=== PATIENT | female | born 1955 | race Caucasian/White ===

== ENCOUNTER 2023-10-31 08:19 | Inpatient (IN) | payer OTHER, SELFPAY ==
[2023-10-31] VITALS (16 sets, daily range): BP systolic 115–150; BP diastolic 52–78; PULSE 69–95; RESP 14–28; TEMP 36.4–37.2; O2SAT 92–98; BMI 23.4
--- NOTE | ~2023-10-31 | FL_ITS ---
EXAMINATION: XR FLUOROSCOPY WITH IMAGES CLINICAL INFORMATION: Retrograde pyelogram COMPARISON: CT abdomen and pelvis from 03/31/2024 TECHNIQUE: Fluoroscopy Supervised By: Oswaldo Willingham. Fluoroscopy Time: 14.9. Cumulative Dose: 4.24 mGy. Images: 3. FINDINGS: 3 images obtained by C-arm camera during retrograde pyelogram on the right and small amount of contrast injected in not dilated collecting system Leonie are not seen. FL/FL guidance in OR IMPRESSION: Retrograde pyelogram
--- NOTE | ~2023-10-31 | CT_ITS ---
EXAMINATION: CT ABDOMEN AND PELVIS WITH CONTRAST CLINICAL INFORMATION: Abdominal pain COMPARISON: None available. TECHNIQUE: Multidetector volumetric images were obtained from the superior aspect of the liver through the pubic symphysis following administration 85 mL of Omnipaque 350 intravenous contrast. Sagittal and coronal reformatted images were obtained on the technologist's workstation. Oral contrast: No This CT examination was performed using dose optimization techniques as appropriate, variously including the following: *Automated exposure control *Adjustment of mA and/or kV according to patient size (this includes techniques or standardized protocols for targeted exams where dose is matched to indication/reason for exam; i.e. extremities or head) *Use of iterative reconstruction technique DLP: 300 mGy-cm FINDINGS: LUNG BASES: The visualized lung bases are unremarkable. LIVER, GALLBLADDER, AND BILIARY TREE: The liver is normal in size, shape, and attenuation. There is a tiny 3 mm cyst in the right lobe of the liver (3:20). No worrisome solid focal hepatic lesion or biliary ductal dilatation is present. The gallbladder is unremarkable with no evidence of radiopaque gallstones, gallbladder wall thickening, or obvious pericholecystic inflammatory changes. PANCREAS: Unremarkable. SPLEEN: Unremarkable. ADRENAL GLANDS: Unremarkable. KIDNEYS AND URETERS: Right: There is an obstructing proximal ureteral calculus on the right measuring about 2 mm in size associated with pelvocaliectasis and perinephric stranding consistent with forniceal rupture. Small amount of fluid is present in the pararenal space. There are benign Bosniak class I right renal cysts which need no additional imaging or follow-up. No suspicious solid right renal masses are seen. No intrarenal calculi are noted. The ureter distal to this stone is unremarkable. Left: Aside from the presence of an upper pole benign Bosniak class I renal cyst which needs no additional imaging or follow-up, no abnormality is seen. BLADDER: Nearly empty but unremarkable. GASTROINTESTINAL TRACT: The small and large bowel are unremarkable. The appendix is unremarkable. ABDOMINAL WALL: No significant hernia is appreciated. LYMPH NODES: Normal. VASCULAR: Calcific atherosclerotic changes are present in the aorta and iliofemoral vessels. There is no evidence of an abdominal aortic aneurysm. PELVIC VISCERA: Unremarkable. OSSEOUS STRUCTURES: Degenerative changes are present at L2-L3 with disc space narrowing. There is a compression fracture involving the superior endplate of L1. CT/CT abdomen pelvis w IV con IMPRESSION: 1. Obstructing 2 mm proximal right ureteral calculus with associated pelvocaliectasis and perinephric stranding consistent with forniceal rupture. 2. Incidental note made of benign Bosniak class I renal cysts which need no additional imaging or follow-up, L1 compression fracture and degenerative changes L2-L3. Fleischner guidelines were followed.
--- NOTE | ~2023-10-31 | XR_ITS ---
EXAMINATION: XR CHEST CLINICAL INFORMATION: Hypoxemia COMPARISON: Portable chest 10/31/2023 TECHNIQUE: AP upright portable view of the chest was obtained. 4:39 PM FINDINGS: No significant abnormality is noted involving the heart, lungs, mediastinum, bony thorax or soft tissues. There is mild bibasilar atelectasis, as previously noted. XR/XR chest 1V IMPRESSION: No acute cardiopulmonary disease.
--- NOTE | ~2023-10-31 | XR_ITS ---
EXAMINATION: XR CHEST CLINICAL INFORMATION: Shortness of breath COMPARISON: None available. TECHNIQUE: Frontal view of the chest was obtained. FINDINGS: No significant abnormality is noted involving the heart, lungs, mediastinum, bony thorax or soft tissues. There is mild bibasilar atelectasis is present. XR/XR chest 1V IMPRESSION: No acute intrathoracic disease.
--- NOTE | 2023-10-31 08:33 | ED.GENADULT ---
HPI - General Adult General Chief complaint: Urogenital-Female Stated complaint: R Side Back Pain No Injury Time Seen by Provider: 10/31/23 08:33 Source: patient Mode of arrival: ambulatory Limitations: no limitations History of Present Illness HPI narrative: Patient is a 68 year old assigned female at with a history of tobacco use presenting to the emergency department today with right flank pain. Patient states that 3 days ago she began to have right sided flank pain and has not been able to urinate since that morning. Patient denies any dizziness, lightheadedness, nausea, vomiting, fever, chills, blurry vision, double vision, loss of vision, chest pain, difficulty breathing, shortness of breath, back pain, night sweats, pain with urination, increased urinary frequency, increased urinary urgency, blood in her urine or stool, syncope or a near syncopal episode, recent trauma or falls, bowel incontinence, bladder incontinence, bowel retention, or any other complaints at this time. Onset (ago): day(s) (3) Location: right (flank) Severity: moderate Severity scale (1-10): 5 Relieving factors: none Exacerbating factors: none Associated symptoms: denies other symptoms Treatments prior to arrival: none Related Data Home Medications Medication Instructions Recorded Confirmed amlodipine 10 mg tablet 10 mg PO DAILY 10/31/23 10/31/23 aspirin 81 mg tablet,delayed 81 mg PO DAILY 10/31/23 10/31/23 release atorvastatin 40 mg tablet 40 mg PO DAILY 10/31/23 10/31/23 cholecalciferol (vitamin D3) 125 125 mcg PO DAILY 10/31/23 10/31/23 mcg (5,000 unit) tablet (Vitamin D3) lisinopril 2.5 mg tablet 2.5 mg PO DAILY 10/31/23 10/31/23 Allergies Allergy/AdvReac Type Severity Reaction Status Date / Time No Known Allergies Allergy Verified 10/31/23 08:30 [No Known Allergies*] Review of Systems Constitutional: Constitutional: Reports no additional constitutional complaints, Denies chills, Denies fever(s) and Denies night sweats Eyes: Eyes: Reports no additional eye complaints, Denies blurry vision, Denies change in vision, Denies diplopia, Denies eye discharge, Denies loss of vision and Denies eye pain ENT: Denies dizziness Cardiovascular: Cardiovascular: Reports no additional cardiovascular complaints, Denies chest pain, Denies lightheadedness, Denies Loss of Consciousness and Denies dyspnea Respiratory: Respiratory: Reports no additional respiratory complaints and Denies dyspnea Gastrointestinal: Gastrointestinal: Reports no additional gastrointestinal complaints, Denies abdominal pain, Denies melena, Denies hematochezia, Denies change in bowel habits and Denies change in stool character Genitourinary: Genitourinary: Denies hematuria, Denies urinary frequency, Denies dysuria, Denies urinary incontinence, Denies urinary hesitancy and Denies urinary urgency Comments: right flank pain Musculoskeletal: Musculoskeletal: Reports no additional musculoskeletal complaints, Denies numbness and Denies tingling Neurologic: Denies dizziness, Denies loss of vision, Denies numbness and Denies tingling Psychiatric: Psychiatric: Reports no additional psychiatric complaints Endocrine: Endocrine: Reports no additional endocrine complaints Hematologic/Lymphatic: Hematologic/Lymphatic: Reports no additional hematologic/lymphatic complaints Allergic/Immunologic: Allergic/Immunologic: Reports no additional allergic/immunologic complaints PMFSH Past Medical History Attestation statement: The following information was validated with the patient. Source: old records reviewed and nursing notes reviewed Social History Social History Patient Tobacco Use Status: Current everyday Tobacco user Cigarette Packs Per Day: 1 Cigarettes Per Day: 20.0 Smoked in Last 30 Days: Yes Use of substances other than those prescribed or required for medical reasons: No Are you DNR?: No Advance Directives: No Advance Directives Information Provided: Yes Physical Exam ED Vital Signs: Vital Signs - 24 hr 10/31/23 08:31 10/31/23 09:40 10/31/23 10:30 Temperature 97.6 F Pulse Rate 95 76 Respiratory Rate 22 H 18 Blood Pressure 115/64 Pulse Oximetry 92 92 Oxygen Delivery Method Room Air Room Air Oxygen Flow Rate 10/31/23 10:32 10/31/23 12:15 10/31/23 14:33 Temperature 98.7 F 98.2 F Pulse Rate 87 80 Respiratory Rate 16 16 Blood Pressure 147/77 H 144/70 H Pulse Oximetry 94 96 96 Oxygen Delivery Method Nasal Cannula Room Air Room Air Oxygen Flow Rate 3 BMI result Body Mass Index 23.4 Const General: cooperative, no acute distress, alert and awake Nutritional Appearance: well nourished Orientation/consciousness: patient oriented x3 Limitations: no limitations HENMT Head: Yes normal to inspection and Yes atraumatic Ears: hearing grossly normal bilaterally and external ears normal General nose exam: Normal external nose present, no nasal discharge noted and no epistaxis Face and sinus: Yes normal facial exam, No abrasion and No laceration Mouth: Normal oral and palatal mucosa present, no drooling and no muffled voice Eyes General: appearance normal, both eyes and all related structures Periorbital: periorbital findings normal Eyelids: Yes eyelids normal Conjunctivae: conjunctivae normal Pupils: Equal, round and reactive pupils present EOM: EOMs intact bilaterally Neck Neck: Yes normal visual inspection, Yes full ROM and Yes no lymphadenopathy Chest Chest palpation & inspection: normal inspection of the chest Resp Effort & Inspection: normal respiratory effort and able to speak in complete sentences GI Inspection: Yes normal to inspection Palpation (GI): Soft to palpation, not firm, no guarding and not rigid General: Yes CVA tenderness (right sided) Back/Spine/Pelvis Back: CVA tenderness (right sided) Cervical Spine: normal cervical lordosis and cervical ROM normal Neuro General: patient oriented x3 and moves all extremities Cranial nerves: Yes Equal, round and reactive pupils present Cognition (Neuro): normal cognition Motor exam (neuro): 5/5 motor strength present throughout Sensory Exam: Normal double simultaneous stimulation for sensation Coordination: [id number] test normal Extrem General: Yes normal to inspection, Yes full ROM and Yes capillary refill normal Psych Appearance: grossly normal Mental Status: mental status grossly normal Affect: normal affect Attitude: cooperative Thought process: Normal thought process present Thought content: Normal thought content present Insight: Good insight present (Psych) Medications Administered Discontinued Medications Generic Name Dose Route Start Last Admin Trade Name Mario PRN Reason Stop Dose Admin Fentanyl 50 mcg 10/31/23 16:11 10/31/23 16:17 Fentanyl Citrate/Pf 100 Mcg/2 Ml Vial IVPUSH 10/31/23 16:12 50 mcg ONCE ONE Administration Protocol Sodium Chloride 1,000 mls @ 999 mls/hr 10/31/23 10:00 10/31/23 14:07 Ns IV 10/31/23 11:00 Infused .Q1H1M ISELA Infusion Ceftriaxone Sodium 1 gm/ 50 mls @ 100 mls/hr 10/31/23 12:57 10/31/23 14:07 Sodium Chloride IV 10/31/23 13:26 Infused ONCE ONE Infusion Iohexol 100 ml 10/31/23 11:04 10/31/23 11:04 Iohexol 350 Mg/Ml 100 Ml Infus..Btl IV 10/31/23 11:05 85 ml ONCE ONE Administration Morphine Sulfate 4 mg 10/31/23 09:52 10/31/23 10:23 Morphine Sulfate 4 Mg/Ml Cartridge IVPUSH 10/31/23 09:53 4 mg ONCE ONE Administration Protocol Ondansetron HCl 4 mg 10/31/23 09:52 10/31/23 10:21 Ondansetron Hcl 4 Mg/2 Ml Vial IVPUSH 10/31/23 09:53 4 mg ONCE ONE Administration Medical Decision Making Medical Decision Making MDM Narrative: Patient is a 68 year old assigned female at with a history of tobacco use presenting to the emergency department today with right sided flank pain and lack of urine production. Patient's physical exam was as noted in the physical exam portion of this note. Patient's blood work showed an elevated WBC count of 21.7, BUN 19, and CR of 1.43. Patient's urine showed no acute process. Patient's EKG was unremarkable. Patient's chest x-ray showed no acute process. Patient's CT abdomen/pelvis showed an obstructing 2mm proximal right ureteral calculus with associated pelvocaliectasis and perinephric stranding consistent with forniceal rupture. I spoke to the urologist who recommended medical admission for pyelonephritis and will take her to the OR for stent placement. I explained my physical exam findings as well as all test results to the patient. I answered all questions asked by the patient. Patient verbalized agreement and understanding with this treatment plan and admission. Differential Diagnosis Differential Diagnoses: The differential diagnosis associated with the presentation includes Kidney stone Pyelonephritis Admission/Observation Consideration of admission/observation: Escalation of care including admission/observation considered Patient admitted. 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 My interpretation of these results are in the MDM Rationale portion of this note. 10/31/23 09:25 10/31/23 09:25 Labs: Lab Results 10/31/23 10/31/23 10/31/23 Range/Units 09:03 09:04 09:25 WBC 21.7 H (4.8-10.8) X10*3/uL RBC 4.34 (4.20-5.50) X10*6/uL Hgb 15.2 (12.0-16.0) g/dl Hct 43.0 (37.0-47.0) % MCV 99.1 H (80.0-98.0) fL MCH 35.0 H (27.0-33.0) pg MCHC 35.3 H (31.0-35.0) g/dl RDW 12.5 (11.0-16.0) % Plt Count 318 (160-400) X10*3/uL MPV 9.2 L (9.4-12.3) fL Immature Gran % (Auto) 0.5 H (0.0-0.4) % Neut % (Auto) 83.4 H (45-73) % Lymph % (Auto) 6.6 L (20-40) % Gilliam % (Auto) 9.3 (2-11) % Eos % (Auto) 0.0 (0-4) % Baso % (Auto) 0.2 (0-2) % Lymph # (Auto) 1.4 (1.2-4.9) X10*3/uL Gilliam # (Auto) 2.0 H (0.1-1.2) X10*3/uL Eos # (Auto) 0.0 (0.0-0.4) X10*3/uL Baso # (Auto) 0.0 (0.0-0.2) X10*3/uL Abs Immat Gran (auto) 0.11 H (0.00-0.03) X10*3/uL Absolute Neuts (auto) 18.1 H (2.0-8.3) x10*3/uL Absolute Nucleated RBC 0.000 (0.0-0.012) X10*3/uL Nucleated RBC % (auto) 0.0 (0.0-0.2) /100WBC Smear Tech's Comments VERIFIED Sodium 140 (135-145) mmol/L Potassium 3.7 (3.3-5.1) mmol/L Chloride 105 (96-108) mmol/L Carbon Dioxide 25 (22-29) mmol/L Anion Gap 14 (12-20) BUN 19 H (9-16) mg/dL Creatinine 1.43 H (0.5-1.4) mg/dL Estim Creat Clear Calc 36.9 Estimated GFR 36 Random Glucose 139 H (60-115) mg/dL Lactic Acid (0.5-2.0) mmol/L Calcium 10.2 (8.4-10.2) mg/dL Magnesium 1.7 (1.6-2.6) mg/dL Total Bilirubin 1.1 H (0.0-1.0) mg/dL AST 15 (5-31) U/L ALT 13 (0-31) U/L Alkaline Phosphatase 82 (39-117) U/L Troponin I High Sens 3.1 (<3.5-17.0) ng/L Total Protein 7.7 (6.5-8.0) g/dL Albumin 4.2 (3.5-5.0) g/dL Urine Color Urine Appearance Urine pH (5.0-9.0) Ur Specific [place] (1.005-1.025) Urine Protein (Neg-Trace) mg/dL Urine Glucose (UA) (Negative) mg/dL Urine Ketones (Negative) mg/dL Urine Blood (Negative) Urine Nitrite (Negative) Ur Leukocyte Esterase (Negative) Urine RBC (0-2) /HPF Urine WBC (0-5) /HPF Ur Squamous Epith Cells (0-2) /HPF Urine Bacteria (None Seen) Hyaline Casts (0-2) /LPF COVID-19 (LETY) Negative (Negative) COVID-19 Clin Com See Note Influenza Type A (ZI) Negative (Negative) Influenza Type B (ZI) Negative (Negative) Influenza A & B Note See Note 10/31/23 10/31/23 Range/Units 10:11 15:01 WBC (4.8-10.8) X10*3/uL RBC (4.20-5.50) X10*6/uL Hgb (12.0-16.0) g/dl Hct (37.0-47.0) % MCV (80.0-98.0) fL MCH (27.0-33.0) pg MCHC (31.0-35.0) g/dl RDW (11.0-16.0) % Plt Count (160-400) X10*3/uL MPV (9.4-12.3) fL Immature Gran % (Auto) (0.0-0.4) % Neut % (Auto) (45-73) % Lymph % (Auto) (20-40) % Gilliam % (Auto) (2-11) % Eos % (Auto) (0-4) % Baso % (Auto) (0-2) % Lymph # (Auto) (1.2-4.9) X10*3/uL Gilliam # (Auto) (0.1-1.2) X10*3/uL Eos # (Auto) (0.0-0.4) X10*3/uL Baso # (Auto) (0.0-0.2) X10*3/uL Abs Immat Gran (auto) (0.00-0.03) X10*3/uL Absolute Neuts (auto) (2.0-8.3) x10*3/uL Absolute Nucleated RBC (0.0-0.012) X10*3/uL Nucleated RBC % (auto) (0.0-0.2) /100WBC Smear Tech's Comments Sodium (135-145) mmol/L Potassium (3.3-5.1) mmol/L Chloride (96-108) mmol/L Carbon Dioxide (22-29) mmol/L Anion Gap (12-20) BUN (9-16) mg/dL Creatinine (0.5-1.4) mg/dL Estim Creat Clear Calc Estimated GFR Random Glucose (60-115) mg/dL Lactic Acid 1.5 (0.5-2.0) mmol/L Calcium (8.4-10.2) mg/dL Magnesium (1.6-2.6) mg/dL Total Bilirubin (0.0-1.0) mg/dL AST (5-31) U/L ALT (0-31) U/L Alkaline Phosphatase (39-117) U/L Troponin I High Sens (<3.5-17.0) ng/L Total Protein (6.5-8.0) g/dL Albumin (3.5-5.0) g/dL Urine Color Yellow Urine Appearance Clear Urine pH 5.5 (5.0-9.0) Ur Specific [place] >= 1.030 H (1.005-1.025) Urine Protein Trace (Neg-Trace) mg/dL Urine Glucose (UA) Negative (Negative) mg/dL Urine Ketones Trace (Negative) mg/dL Urine Blood Trace H (Negative) Urine Nitrite Negative (Negative) Ur Leukocyte Esterase Negative (Negative) Urine RBC 0-2 (0-2) /HPF Urine WBC 6-10 H (0-5) /HPF Ur Squamous Epith Cells 6-10 (0-2) /HPF Urine Bacteria 1+ (None Seen) Hyaline Casts 0-2 (0-2) /LPF COVID-19 (LETY) (Negative) COVID-19 Clin Com Influenza Type A (ZI) (Negative) Influenza Type B (ZI) (Negative) Influenza A & B Note Independent Interpretation I performed an independent interpretation of an: EKG, Plain X-Ray and CT Scan Interpretation: My interpretation is in agreement with the radiologist's impression of these imaging studies. EXAMINATION: XR CHEST CLINICAL INFORMATION: Shortness of breath COMPARISON: None available. TECHNIQUE: Frontal view of the chest was obtained. FINDINGS: No significant abnormality is noted involving the heart, lungs, mediastinum, bony thorax or soft tissues. There is mild bibasilar atelectasis is present. XR/XR chest 1V IMPRESSION: No acute intrathoracic disease. Dictated By: Kenji Sandra MD Signed By: Electronically signed by Kenji Sandra MD 10/31/23 1122 EXAMINATION: CT ABDOMEN AND PELVIS WITH CONTRAST CLINICAL INFORMATION: Abdominal pain COMPARISON: None available. TECHNIQUE: Multidetector volumetric images were obtained from the superior aspect of the liver through the pubic symphysis following administration 85 mL of Omnipaque 350 intravenous contrast. Sagittal and coronal reformatted images were obtained on the technologist's workstation. Oral contrast: No This CT examination was performed using dose optimization techniques as appropriate, variously including the following: *Automated exposure control *Adjustment of mA and/or kV according to patient size (this includes techniques or standardized protocols for targeted exams where dose is matched to indication/reason for exam; i.e. extremities or head) *Use of iterative reconstruction technique DLP: 300 mGy-cm FINDINGS: LUNG BASES: The visualized lung bases are unremarkable. LIVER, GALLBLADDER, AND BILIARY TREE: The liver is normal in size, shape, and attenuation. There is a tiny 3 mm cyst in the right lobe of the liver (3:20). No worrisome solid focal hepatic lesion or biliary ductal dilatation is present. The gallbladder is unremarkable with no evidence of radiopaque gallstones, gallbladder wall thickening, or obvious pericholecystic inflammatory changes. PANCREAS: Unremarkable. SPLEEN: Unremarkable. ADRENAL GLANDS: Unremarkable. KIDNEYS AND URETERS: Right: There is an obstructing proximal ureteral calculus on the right measuring about 2 mm in size associated with pelvocaliectasis and perinephric stranding consistent with forniceal rupture. Small amount of fluid is present in the pararenal space. There are benign Bosniak class I right renal cysts which need no additional imaging or follow-up. No suspicious solid right renal masses are seen. No intrarenal calculi are noted. The ureter distal to this stone is unremarkable. Left: Aside from the presence of an upper pole benign Bosniak class I renal cyst which needs no additional imaging or follow-up, no abnormality is seen. BLADDER: Nearly empty but unremarkable. GASTROINTESTINAL TRACT: The small and large bowel are unremarkable. The appendix is unremarkable. ABDOMINAL WALL: No significant hernia is appreciated. LYMPH NODES: Normal. VASCULAR: Calcific atherosclerotic changes are present in the aorta and iliofemoral vessels. There is no evidence of an abdominal aortic aneurysm. PELVIC VISCERA: Unremarkable. OSSEOUS STRUCTURES: Degenerative changes are present at L2-L3 with disc space narrowing. There is a compression fracture involving the superior endplate of L1. CT/CT abdomen pelvis w IV con IMPRESSION: 1. Obstructing 2 mm proximal right ureteral calculus with associated pelvocaliectasis and perinephric stranding consistent with forniceal rupture. 2. Incidental note made of benign Bosniak class I renal cysts which need no additional imaging or follow-up, L1 compression fracture and degenerative changes L2-L3. Fleischner guidelines were followed. Dictated By: Kenji Sandra MD Signed By: Electronically signed by Kenji Sandra MD 10/31/23 1148 Vent. Rate: 092 BPM Atrial Rate: 092 BPM P-R Int: 124 ms QRS Dur: 084 ms QT Int: 380 ms P-R-T Axes: 081 106 079 degrees QTc Int: 469 ms Normal sinus rhythm Rightward axis Pulmonary disease pattern Nonspecific ST and T wave abnormality Abnormal ECG When compared with ECG of 04-MAY-2019 15:10, ST now depressed in Lateral leads DD/ [id number] Radiology Impression Discussion of test interpretation with radiology: I have reviewed the radiologist's reading. Critical Care Time Critical Care Time Critical Care Time: Yes Total Critical Care Time: 55 Attestation: I spent 55 minutes of Critical Care Time with this patient. This does not include time spent on separately reported billable procedures. Discharge Plan Discharge Clinical Impression: Pyelonephritis, Kidney stone Patient Disposition: Admitted As Inpatient
--- NOTE | 2023-10-31 08:35 | ECG_ITS ---
Test Reason : BACK PAIN Blood Pressure : / mmHG Vent. Rate : 092 BPM Atrial Rate : 092 BPM P-R Int : 124 ms QRS Dur : 084 ms QT Int : 380 ms P-R-T Axes : 081 106 079 degrees QTc Int : 469 ms Normal sinus rhythm Rightward axis Pulmonary disease pattern Nonspecific ST and T wave abnormality Abnormal ECG When compared with ECG of 04-MAY-2019 15:10, ST now depressed in Lateral leads Referred By: Nia Hagen Electronically Signed By:Aldair Yañez
[2023-10-31 09:30] LABS: COVID-19 Test Negative (Negative); IDNOW Serial# 9DB6401D
[2023-10-31 09:31] LABS: Basophils Percent Auto 0.2 % (0-2); Hemoglobin 15.2 g/dl (12.0-16.0); Imm Gran Abs Auto 0.11 X10*3/uL (0.00-0.03); Imm Gran Pct Auto 0.5 % (0.0-0.4); Lymphocytes Absolute Auto 1.4 X10*3/uL (1.2-4.9); Lymphocytes Percent Auto 6.6 % (20-40); MANUAL DIFF FLAG SCAN; Mean Corpuscular HGB Conc 35.3 g/dl (31.0-35.0); Mean Corpuscular Volume 99.1 fL (80.0-98.0); Mean Platelet Volume 9.2 fL (9.4-12.3); Monocytes Percent Auto 9.3 % (2-11); Neutrophils Absolute Auto 18.1 x10*3/uL (2.0-8.3); Neutrophils Percent Auto 83.4 % (45-73); Platelet Count 318 X10*3/uL (160-400); Red Blood Count 4.34 X10*6/uL (4.20-5.50); Red Cell Distribution Width 12.5 % (11.0-16.0); SCAN SMEAR FLAG 1; White Blood Count 21.7 X10*3/uL (4.8-10.8)
[2023-10-31 09:31] LABS: IDNOW Serial# 58CA691E; Influenza A Negative (Negative); Influenza B2 Negative (Negative)
--- NOTE | 2023-10-31 09:40 | PC.NURSE ---
pt a&o x4, calm, and cooperative. pt reporting 10/10 flank pain that started monday and has become increasingly worse. 22G IV placed to L hand. labs drawn and sent. resting quietly on stretcher in no apparent distress. rr even/unlabored. pt sts smokes 1 ppd. call alfonso within reach. plan of care ongoing.
[2023-10-31 09:49] LABS: Alanine Aminotransferase 13 U/L (0-31); Albumin Level 4.2 g/dL (3.5-5.0); Alkaline Phosphatase 82 U/L (39-117); Anion Gap 14 (12-20); Aspartate Amino Transferase 15 U/L (5-31); Bilirubin Total 1.1 mg/dL (0.0-1.0); Blood Urea Nitrogen 19 mg/dL (9-16); Calcium 10.2 mg/dL (8.4-10.2); Carbon Dioxide 25 mmol/L (22-29); Chloride 105 mmol/L (96-108); Creatinine Clr Calc Pharmacy 36.9; Estimated Glomerular Filt Rate 36; Glucose Random 139 mg/dL (60-115); Magnesium 1.7 mg/dL (1.6-2.6); Potassium 3.7 mmol/L (3.3-5.1); Sodium 140 mmol/L (135-145); Total Protein 7.7 g/dL (6.5-8.0)
[2023-10-31 09:52] LABS: SLIDE REVIEW VERIFIED
[2023-10-31 09:58] LABS: Troponin-I High Sensitivity 3.1 ng/L (<3.5-17.0)
[2023-10-31] MEDS: 0.9 % Sodium Chloride 1,000 ML 999 ML IV (10:19)
[2023-10-31] MEDS: ondansetron HCL 4 MG/2 ML VIAL IVPUSH (10:21)
[2023-10-31] MEDS: Morphine Sulfate 4 MG/ML CARTRIDGE IVPUSH (10:23)
[2023-10-31 10:35] LABS: Lactic Acid 1.5 mmol/L (0.5-2.0)
--- NOTE | 2023-10-31 10:42 | MHC.CM.ED ---
CM RECEIVED A CALL FROM PETER HENDRICKS AT THE [facility] SHE PROVIDED HER PHONE NUMBER AND INDICATED THEY WOULD BE ABLE TO PROVIDE SERVICES/TRANSPORTATION FOR THIS PT NEEDED PETER HENDRICKS: [phone]
[2023-10-31] MEDS: iohexoL 350 MG/ML 100 ML INFUS..BTL IV (11:04)
--- NOTE | 2023-10-31 11:57 | PC.NURSE ---
pt fell asleep, IV dislodged, fluids did not finish infusing.
[2023-10-31] MEDS: cefTRIAXone sodium 1 GM in 0.9 % Sodium Chloride 50 ML IV (13:20)
--- NOTE | 2023-10-31 13:31 | PHA.MEDREC ---
Pharmacy Consult ? Medication Reconciliation Pharmacy has completed the medication reconciliation. Spoke with patient in the ED who had a list of her medications from [facility].
--- NOTE | 2023-10-31 13:57 | PC.NURSE ---
20G IV placed to LAC. report given to TOMI Metcalf in [facility]. pt to be picked up for surgery at 1430.
--- NOTE | 2023-10-31 15:05 | PM.IMHP ---
History of Present Illness Date of Service: 10/31/23 Attending physician on admission: Liberty Smith Chief Complaint: r flank pain 68-year-old female with history of hypertension, hyperlipidemia who is a current 1 pack per day smoker with >40+ pack-year history presented to the ED earlier today for evaluation of worsening right flank pain that has been ongoing for 3 days. She states she has also been unable to urinate since then. There has been no associated fevers, chills, abdominal pain, nausea, vomiting, dysuria, hematuria, increased urinary urgency. On arrival, vitals stable, though slightly hypertensive to 142/76 on admission. There is a leukocytosis of 21.7. Creatinine 1.43, baseline 0.76. BUN 19. Electrolyte levels normal. Lactic acid 1.5. Urinalysis significant for trace blood elevated specific gravity, 1+ bacteria and positive urinary sediment. No leukocyte esterase or nitrites. Negative for COVID-19, influenza. Chest x-ray negative for acute intrathoracic disease. CT abdomen/pelvis shows obstructing 2 mm proximal right ureteral calculus with associated pelvocaliectasis and perinephric stranding consistent with forniceal rupture. Incidentally noted are class 1 renal cysts that do not require additional follow-up as well as L1 compression fracture and degenerative changes in the lumbar spine. Bladder scan revealed 60ml, catheter placed. While in the ED, received 1 L IV NS, 1 g ceftriaxone, ondansetron, morphine. She has arrived to the floor from PACU s/p cystoscopy with stent placement. Reports resolution of right-sided flank pain but does continue to experience urinary urgency and dysuria. She is also hypoxic to 86% on room air postoperatively, now maintain oximetry 92% on 2 L. Review of Systems Review of Systems: General: No fevers, malaise, unintentional weight loss HEENT: No blurred vision, diplopia. No sore throat, nasal congestion, rhinorrhea, sinus pain, ear pain Cardiovascular: No chest pain, palpitations, or leg edema Respiratory: No shortness of breath, wheezing, cough GI: No abdominal pain, nausea, vomiting, diarrhea, constipation, melena, hematochezia : +decreased urinary output, +dysuria, urgency MSK: +R flank pain. No myalgia, back pain Neuro: No headaches, weakness, paresthesias Skin: No rashes or lesions PMFSH Social History Patient Tobacco Use Status: Current everyday Tobacco user Cigarette Packs Per Day: 1 Cigarettes Per Day: 20.0 Meds Allergies Allergy/AdvReac Type Severity Reaction Status Date / Time No Known Allergies Allergy Verified 10/31/23 08:30 [No Known Allergies*] Active Medications: Current Medications Sodium Chloride (0.9 % Sodium Chloride Flush 3 Ml Syringe) 3 ml [facility] [place] Medications Medication Instructions Recorded Confirmed Last Taken Type amlodipine 10 mg tablet 10 mg PO DAILY 10/31/23 10/31/23 Unknown History aspirin 81 mg tablet,delayed 81 mg PO DAILY 10/31/23 10/31/23 Unknown History release atorvastatin 40 mg tablet 40 mg PO DAILY 10/31/23 10/31/23 Unknown History cholecalciferol (vitamin D3) 125 125 mcg PO DAILY 10/31/23 10/31/23 Unknown History mcg (5,000 unit) tablet (Vitamin D3) lisinopril 2.5 mg tablet 2.5 mg PO DAILY 10/31/23 10/31/23 Unknown History Physical Exam Vital Signs and Narrative: Vital Signs: Last Vital Signs Temp 98.2 F 10/31/23 14:33 Pulse 80 10/31/23 14:33 Resp 16 10/31/23 14:33 BP 144/70 H 10/31/23 14:33 Pulse Ox 96 10/31/23 14:33 O2 Del Method Room Air 10/31/23 14:33 O2 Flow Rate 3 10/31/23 10:32 BMI result Body Mass Index 23.4 Constitutional - Awake and Alert, No apparent distress Eyes - PERRLA, EOMI Cardiovascular - S1S2, RRR, No edema Respiratory - Normal lung expansion, Normal respiratory effort, No respiratory distress on 2L, diminished bilaterally but no wheezing/rales/rhonchi Gastrointestinal - NT / ND; +BS; No rebound or guarding - No CVA tenderness Extremities - no calf tenderness bilaterally, no swelling Skin - Warm/Dry Neurological - Alert & oriented x3 Psychological - Appropriate affect Results Labs 10/31/23 09:25 10/31/23 09:25 Labs: Laboratory Results - last 24 hr 10/31/23 10/31/23 10/31/23 09:03 09:04 09:25 MCV 99.1 H MCH 35.0 H MCHC 35.3 H RDW 12.5 Plt Count 318 MPV 9.2 L Immature Gran % (Auto) 0.5 H Neut % (Auto) 83.4 H Lymph % (Auto) 6.6 L [place] % (Auto) 9.3 Eos % (Auto) 0.0 Baso % (Auto) 0.2 Lymph # (Auto) 1.4 [place] # (Auto) 2.0 H Eos # (Auto) 0.0 Baso # (Auto) 0.0 Abs Immat Gran (auto) 0.11 H Absolute Neuts (auto) 18.1 H Absolute Nucleated RBC 0.000 Nucleated RBC % (auto) 0.0 Smear Tech's Comments VERIFIED Anion Gap 14 Estim Creat Clear Calc 36.9 Estimated GFR 36 Random Glucose 139 H Lactic Acid Calcium 10.2 Magnesium 1.7 Total Bilirubin 1.1 H AST 15 ALT 13 Alkaline Phosphatase 82 Total Protein 7.7 Albumin 4.2 COVID-19 (LETY) Negative COVID-19 Clin Com See Note Influenza Type A (ZI) Negative Influenza Type B (ZI) Negative Influenza A & B Note See Note 10/31/23 10:11 MCV MCH MCHC RDW Plt Count MPV Immature Gran % (Auto) Neut % (Auto) Lymph % (Auto) [place] % (Auto) Eos % (Auto) Baso % (Auto) Lymph # (Auto) [place] # (Auto) Eos # (Auto) Baso # (Auto) Abs Immat Gran (auto) Absolute Neuts (auto) Absolute Nucleated RBC Nucleated RBC % (auto) Smear Tech's Comments Anion Gap Estim Creat Clear Calc Estimated GFR Random Glucose Lactic Acid 1.5 Calcium Magnesium Total Bilirubin AST ALT Alkaline Phosphatase Total Protein Albumin COVID-19 (LETY) COVID-19 Clin Com Influenza Type A (ZI) Influenza Type B (ZI) Influenza A & B Note Imaging Radiologist's Impressions: Impressions Chest X-Ray 10/31/23 11:01 IMPRESSION: No acute intrathoracic disease. Abdomen/Pelvis CT 10/31/23 11:02 IMPRESSION: 1. Obstructing 2 mm proximal right ureteral calculus with associated pelvocaliectasis and perinephric stranding consistent with forniceal rupture. 2. Incidental note made of benign Bosniak class I renal cysts which need no additional imaging or follow-up, L1 compression fracture and degenerative changes L2-L3. Fleischner guidelines were followed. Assessment and Plan (1) Obstructive uropathy: Status: Acute (2) Pyelonephritis: Status: Acute (3) Acute kidney injury: Status: Acute Plan 68-year-old female with history of hypertension, hyperlipidemia who is a current 1 pack per day smoker with >40+ pack-year history admitted for further managment of acute pyelonephritis with R sided obstructive uropathy and forniceal rupture #R sided Obstructive uropathy with forniceal rupture -CT abd/pelvis shows obstructing 2 mm proximal right ureteral calculus with associated pelvocaliectasis and perinephric stranding consistent with forniceal rupture -UA with trace blood, positive urinary sediment, 1+ bacteria, elevated specific gravity. Negative leukocyte esterase and nitrites -IV ceftriaxone 1g daily (initiated 10/31) -Urology consult -Pt transferred to OR for cystoscopy with R ureteral stent placement -Advance diet as tolerated -Continue IVF -Haile catheter for fluid management -antiemetics, pain management with pain scale prn -follow cbc, cultures. No sepsis on admission #Post-operative hypoxia -denies chronic lung disease, but likely has underlying COPD given 50+ pack year smoking history -Continue supplemental oxygen to maintain oximetry >92%, wean as tolerated -Incentive spirometry # acute kidney injury -secondary to above -creatinine 1.43, baseline 0.76 -continue IVF, remove obstructing stone as above -strict I&O, Haile catheter -avoid nephrotoxins -follow BMP #HTN -bp reasonably controlled -continue amlodipine 10 mg. Hold lisinopril in setting of JEET # HLD -Continue statin #Alcohol use disorder -reports drinking 4-5 shots daily, last drink 48 hours ago -no evidence of withdrawal at this time. Denies hx w/d seizure/dts -monitor on ciwa -declines addiction med consult, advised to significantly cut back on alcohol consumption # cigarette smoker -cessation counseling -declines NRT #L1 compression fracture, chronicity unknown -outpt follow up DVT prophylaxis- SCPs Full code Pt requires inpt stay at least 2 midnight due to obstructive uropathy complicated by acute pyelonephritis and JEET requiring surgical intervention, IV abx, IVF, and close monitoring of renal function/lytes. Quality Stroke Does the patient have a stroke diagnosis?: No VTE Prior VTE?: No VTE Risk Level:: Medical - moderate - high VTE Device Contraindication: N/A - Device Ordered VTE Drug Contraindication: Treatment Not Indicated
[2023-10-31 15:16] LABS: Appearance Urine Clear; Color Urine Yellow; Glucose Urine UA Negative (Negative); Leukocyte Esterase Urine Negative (Negative); Nitrite Urine Negative (Negative); PH 5.5 (5.0-9.0); Specific Gravity - Urine >= 1.030 (1.005-1.025); UMIC TRIGGER UACC YES; Urine Blood Trace (Negative); Urine Ketones Trace mg/dL (Negative); Urine Protein Trace mg/dL (Neg-Trace)
[2023-10-31 15:18] LABS: Bacteria Urine 1+ (None Seen); Hyaline Casts Urine 0-2 /LPF (0-2); RBC Urine 0-2 /HPF (0-2); UACC Culture Trigger YES
--- NOTE | 2023-10-31 15:20 | PC.NURSE ---
pt off unit, en route to [facility].
--- NOTE | 2023-10-31 15:56 | PM.UROCN ---
History of Present Illness Consult details Consult date: 10/31/23 Narrative: 68 year old female presenting to the emergency department today with right flank pain. Patient states that 3 days ago she began to have right sided flank pain and has not been able to urinate since that morning. Patient with history of tobacco use denies any dizziness, lightheadedness, nausea, vomiting, fever, chills, chest pain, difficulty breathing, shortness of breath, denies pain with urination, increased urinary frequency, blood in her urine or stool. CTAP: Obstructing 2 mm proximal right ureteral calculus with associated pelvocaliectasis and perinephric stranding consistent with forniceal rupture. Review of Systems Review of Systems: Yes all other systems are reviewed and are negative Constitutional: Constitutional: Reports no additional constitutional complaints Eyes: Eyes: Reports no additional eye complaints ENT: Reports system reviewed and no additional complaints, except as documented Cardiovascular: Cardiovascular: Denies dyspnea Respiratory: Respiratory: Denies cough and Denies dyspnea Gastrointestinal: Gastrointestinal: Reports no additional gastrointestinal complaints Genitourinary: Genitourinary: Reports no additional female genitourinary complaints Musculoskeletal: Musculoskeletal: Reports no additional musculoskeletal complaints Integumentary/Breasts: Skin/Breast: Denies rash and Denies unusual bruising Neurologic: Reports system reviewed and no additional complaints, except as documented Psychiatric: Psychiatric: Reports no additional psychiatric complaints Endocrine: Endocrine: Reports no additional endocrine complaints Hematologic/Lymphatic: Hematologic/Lymphatic: Reports no additional hematologic/lymphatic complaints Allergic/Immunologic: Allergic/Immunologic: Reports no additional allergic/immunologic complaints PMFSH Social History Social History Patient Tobacco Use Status: Current everyday Tobacco user Cigarette Packs Per Day: 1 Cigarettes Per Day: 20.0 Smoked in Last 30 Days: Yes Use of substances other than those prescribed or required for medical reasons: No Are you DNR?: No Advance Directives: No Advance Directives Information Provided: Yes Meds Allergies Allergy/AdvReac Type Severity Reaction Status Date / Time No Known Allergies Allergy Verified 10/31/23 08:30 [No Known Allergies*] Active Medications: Current Medications Acetaminophen (Acetaminophen 325 Mg Tablet) 650 mg PO Q6H PRN PRN Reason: Pain, Mild (Pain Scale 1-3) Amlodipine Besylate (Amlodipine Besylate 10 Mg Tablet) 10 mg PO DAILY [facility]; Protocol Atorvastatin Calcium (Atorvastatin Calcium 40 Mg Tablet) 40 mg PO DAILY [facility] Sodium Chloride (Ns) 1,000 mls @ 100 mls/hr IVCONT .Q10H [facility] Morphine Sulfate (Morphine Sulfate 4 Mg/Ml Cartridge) 2 mg IVPUSH Q4H PRN; Protocol PRN Reason: Pain, Severe (Pain Scale 7-10) Ondansetron HCl (Ondansetron Hcl 4 Mg/2 Ml Vial) 4 mg IVPUSH Q8H PRN PRN Reason: Nausea and Vomiting Oxycodone HCl (Oxycodone Hcl Immed Release 5 Mg Tablet) 5 mg PO Q6H PRN PRN Reason: Pain, Moderate(Pain Scale 4-6) Senna (Sennosides 8.6 Mg Tablet) 17.2 mg PO BEDTIME PRN PRN Reason: Constipation Sodium Chloride (0.9 % Sodium Chloride Flush 3 Ml Syringe) 3 ml IVFLUSH QSHIFT [facility] Vitamin D (Cholecalciferol (Vitamin D3) 25 Mcg Tablet) 125 mcg PO DAILY [facility] Home Medications Medication Instructions Recorded Confirmed Last Taken Type amlodipine 10 mg tablet 10 mg PO DAILY 10/31/23 10/31/23 Unknown History aspirin 81 mg tablet,delayed 81 mg PO DAILY 10/31/23 10/31/23 Unknown History release atorvastatin 40 mg tablet 40 mg PO DAILY 10/31/23 10/31/23 Unknown History cholecalciferol (vitamin D3) 125 125 mcg PO DAILY 10/31/23 10/31/23 Unknown History mcg (5,000 unit) tablet (Vitamin D3) lisinopril 2.5 mg tablet 2.5 mg PO DAILY 10/31/23 10/31/23 Unknown History Physical Exam Vital Signs: Vital Signs: Last Vital Signs Temp 99.0 F 10/31/23 15:29 Pulse 85 10/31/23 15:29 Resp 20 10/31/23 15:29 BP 142/76 H 10/31/23 15:29 Pulse Ox 92 10/31/23 15:29 O2 Del Method Nasal Cannula 10/31/23 15:29 O2 Flow Rate 2 10/31/23 15:29 BMI result Body Mass Index 23.4 Const: General: cooperative, healthy appearing and no acute distress Orientation/consciousness: patient oriented x3 HEENT: Head: Yes normal to inspection, Yes normocephalic and Yes atraumatic Eyes: Conjunctivae: conjunctivae normal Neck: Neck: Yes normal visual inspection and Yes trachea midline Chest: Chest palpation & inspection: normal inspection of the chest Resp: Effort & Inspection: normal respiratory effort Cardio: Rate: regular rate GI: Inspection: Yes normal to inspection Palpation (GI): Soft to palpation : General: Yes CVA tenderness (right) Back/Spine/Pelvis: Back: CVA tenderness (right) Skin: General skin exam: no rashes or lesions noted Neuro: General: patient oriented x3 Extrem: General: No edema Psych: Appearance: grossly normal Results Labs 10/31/23 09:25 10/31/23 09:25 Labs: Abnormal lab results 10/31/23 10/31/23 Range/Units 09:25 15:01 WBC 21.7 H (4.8-10.8) X10*3/uL MCV 99.1 H (80.0-98.0) fL MCH 35.0 H (27.0-33.0) pg MCHC 35.3 H (31.0-35.0) g/dl MPV 9.2 L (9.4-12.3) fL Immature Gran % (Auto) 0.5 H (0.0-0.4) % Neut % (Auto) 83.4 H (45-73) % Lymph % (Auto) 6.6 L (20-40) % [place] # (Auto) 2.0 H (0.1-1.2) X10*3/uL Abs Immat Gran (auto) 0.11 H (0.00-0.03) X10*3/uL Absolute Neuts (auto) 18.1 H (2.0-8.3) x10*3/uL BUN 19 H (9-16) mg/dL Creatinine 1.43 H (0.5-1.4) mg/dL Random Glucose 139 H (60-115) mg/dL Total Bilirubin 1.1 H (0.0-1.0) mg/dL Ur Specific [place] >= 1.030 H (1.005-1.025) Urine Blood Trace H (Negative) Urine WBC 6-10 H (0-5) /HPF Short CBC 10/31/23 Range/Units 09:25 WBC 21.7 H (4.8-10.8) X10*3/uL Hgb 15.2 (12.0-16.0) g/dl Hct 43.0 (37.0-47.0) % Plt Count 318 (160-400) X10*3/uL BMP 10/31/23 09:25 Sodium 140 Potassium 3.7 Chloride 105 Carbon Dioxide 25 BUN 19 H Creatinine 1.43 H Calcium 10.2 Liver Function 10/31/23 Range/Units 09:25 Total Bilirubin 1.1 H (0.0-1.0) mg/dL AST 15 (5-31) U/L ALT 13 (0-31) U/L Alkaline Phosphatase 82 (39-117) U/L Albumin 4.2 (3.5-5.0) g/dL Urine 10/31/23 Range/Units 15:01 Urine Color Yellow Urine Appearance Clear Urine pH 5.5 (5.0-9.0) Ur Specific [place] >= 1.030 H (1.005-1.025) Urine Protein Trace (Neg-Trace) mg/dL Urine Glucose (UA) Negative (Negative) mg/dL All other labs normal. Imaging Additional studies: Date of Service: 10/31/23 EXAMINATION: CT ABDOMEN AND PELVIS WITH CONTRAST CLINICAL INFORMATION: Abdominal pain COMPARISON: None available. TECHNIQUE: Multidetector volumetric images were obtained from the superior aspect of the liver through the pubic symphysis following administration 85 mL of Omnipaque 350 intravenous contrast. Sagittal and coronal reformatted images were obtained on the technologist's workstation. Oral contrast: No This CT examination was performed using dose optimization techniques as appropriate, variously including the following: *Automated exposure control *Adjustment of mA and/or kV according to patient size (this includes techniques or standardized protocols for targeted exams where dose is matched to indication/reason for exam; i.e. extremities or head) *Use of iterative reconstruction technique DLP: 300 mGy-cm FINDINGS: LUNG BASES: The visualized lung bases are unremarkable. LIVER, GALLBLADDER, AND BILIARY TREE: The liver is normal in size, shape, and attenuation. There is a tiny 3 mm cyst in the right lobe of the liver (3:20). No worrisome solid focal hepatic lesion or biliary ductal dilatation is present. The gallbladder is unremarkable with no evidence of radiopaque gallstones, gallbladder wall thickening, or obvious pericholecystic inflammatory changes. PANCREAS: Unremarkable. SPLEEN: Unremarkable. ADRENAL GLANDS: Unremarkable. KIDNEYS AND URETERS: Right: There is an obstructing proximal ureteral calculus on the right measuring about 2 mm in size associated with pelvocaliectasis and perinephric stranding consistent with forniceal rupture. Small amount of fluid is present in the pararenal space. There are benign Bosniak class I right renal cysts which need no additional imaging or follow-up. No suspicious solid right renal masses are seen. No intrarenal calculi are noted. The ureter distal to this stone is unremarkable. Left: Aside from the presence of an upper pole benign Bosniak class I renal cyst which needs no additional imaging or follow-up, no abnormality is seen. BLADDER: Nearly empty but unremarkable. GASTROINTESTINAL TRACT: The small and large bowel are unremarkable. The appendix is unremarkable. ABDOMINAL WALL: No significant hernia is appreciated. LYMPH NODES: Normal. VASCULAR: Calcific atherosclerotic changes are present in the aorta and iliofemoral vessels. There is no evidence of an abdominal aortic aneurysm. PELVIC VISCERA: Unremarkable. OSSEOUS STRUCTURES: Degenerative changes are present at L2-L3 with disc space narrowing. There is a compression fracture involving the superior endplate of L1. IMPRESSION: 1. Obstructing 2 mm proximal right ureteral calculus with associated pelvocaliectasis and perinephric stranding consistent with forniceal rupture. 2. Incidental note made of benign Bosniak class I renal cysts which need no additional imaging or follow-up, L1 compression fracture and degenerative changes L2-L3. Assessment and Plan (1) Kidney stone: Status: Acute (2) Pyelonephritis: Status: Acute (3) Obstructive uropathy: Status: Acute Plan Cystoscopy right ureteral stent Procedures Date of Service Date of Service: 10/31/23
--- NOTE | 2023-10-31 16:02 | HO.ANESPROP2 ---
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 No therapy Slightly elevated BUN/Cr 19/1.43 Leucocytosis WCC 21.7 O2 sats 92% (2L NC) Family History Family history of problems with anesthesia: No Surgical History History of Problems with Anesthesia: No Social History Social History Patient Tobacco Use Status: Current everyday Tobacco user Cigarette Packs Per Day: 1 Cigarettes Per Day: 20.0 Smoked in Last 30 Days: Yes Use of substances other than those prescribed or required for medical reasons: No Are you DNR?: No Advance Directives: No Advance Directives Information Provided: Yes Meds Allergies Allergy/AdvReac Type Severity Reaction Status Date / Time No Known Allergies Allergy Verified 10/31/23 08:30 [No Known Allergies*] Active Medications: Current Medications Acetaminophen (Acetaminophen 325 Mg Tablet) 650 mg PO Q6H PRN PRN Reason: Pain, Mild (Pain Scale 1-3) Amlodipine Besylate (Amlodipine Besylate 10 Mg Tablet) 10 mg PO DAILY [facility]; Protocol Atorvastatin Calcium (Atorvastatin Calcium 40 Mg Tablet) 40 mg PO DAILY [facility] Sodium Chloride (Ns) 1,000 mls @ 100 mls/hr IVCONT .Q10H [facility] Morphine Sulfate (Morphine Sulfate 4 Mg/Ml Cartridge) 2 mg IVPUSH Q4H PRN; Protocol PRN Reason: Pain, Severe (Pain Scale 7-10) Ondansetron HCl (Ondansetron Hcl 4 Mg/2 Ml Vial) 4 mg IVPUSH Q8H PRN PRN Reason: Nausea and Vomiting Oxycodone HCl (Oxycodone Hcl Immed Release 5 Mg Tablet) 5 mg PO Q6H PRN PRN Reason: Pain, Moderate(Pain Scale 4-6) Senna (Sennosides 8.6 Mg Tablet) 17.2 mg PO BEDTIME PRN PRN Reason: Constipation Sodium Chloride (0.9 % Sodium Chloride Flush 3 Ml Syringe) 3 ml IVFLUSH QSHIFT [facility] Vitamin D (Cholecalciferol (Vitamin D3) 25 Mcg Tablet) 125 mcg PO DAILY [facility] Home Medications Medication Instructions Recorded Confirmed Last Taken Type amlodipine 10 mg tablet 10 mg PO DAILY 10/31/23 10/31/23 Unknown History aspirin 81 mg tablet,delayed 81 mg PO DAILY 10/31/23 10/31/23 Unknown History release atorvastatin 40 mg tablet 40 mg PO DAILY 10/31/23 10/31/23 Unknown History cholecalciferol (vitamin D3) 125 125 mcg PO DAILY 10/31/23 10/31/23 Unknown History mcg (5,000 unit) tablet (Vitamin D3) lisinopril 2.5 mg tablet 2.5 mg PO DAILY 10/31/23 10/31/23 Unknown History Exam Height,Weight and Vital Signs: Height 5 ft 8 in Weight 69.853 kg Last Vital Signs Temp 99.0 F 10/31/23 15:29 Pulse 85 10/31/23 15:29 Resp 20 10/31/23 15:29 BP 142/76 H 10/31/23 15:29 Pulse Ox 92 10/31/23 15:29 O2 Del Method Nasal Cannula 10/31/23 15:29 O2 Flow Rate 2 10/31/23 15:29 Pertinent Lab Results Pertinent Lab Results: Laboratory Tests 10/31/23 10/31/23 10/31/23 09:03 09:04 09:25 WBC 21.7 H RBC 4.34 Hgb 15.2 Hct 43.0 MCV 99.1 H MCH 35.0 H MCHC 35.3 H RDW 12.5 Plt Count 318 MPV 9.2 L Immature Gran % (Auto) 0.5 H Neut % (Auto) 83.4 H Lymph % (Auto) 6.6 L [place] % (Auto) 9.3 Eos % (Auto) 0.0 Baso % (Auto) 0.2 Lymph # (Auto) 1.4 [place] # (Auto) 2.0 H Eos # (Auto) 0.0 Baso # (Auto) 0.0 Abs Immat Gran (auto) 0.11 H Absolute Neuts (auto) 18.1 H Absolute Nucleated RBC 0.000 Nucleated RBC % (auto) 0.0 Smear Tech's Comments VERIFIED Sodium 140 Potassium 3.7 Chloride 105 Carbon Dioxide 25 Anion Gap 14 BUN 19 H Creatinine 1.43 H Estim Creat Clear Calc 36.9 Estimated GFR 36 Random Glucose 139 H Lactic Acid Calcium 10.2 Magnesium 1.7 Total Bilirubin 1.1 H AST 15 ALT 13 Alkaline Phosphatase 82 Troponin I High Sens 3.1 Total Protein 7.7 Albumin 4.2 Urine Color Urine Appearance Urine pH Ur Specific [place] Urine Protein Urine Glucose (UA) Urine Ketones Urine Blood Urine Nitrite Ur Leukocyte Esterase Urine RBC Urine WBC Ur Squamous Epith Cells Urine Bacteria Hyaline Casts COVID-19 (LETY) Negative COVID-19 Clin Com See Note Influenza Type A (ZI) Negative Influenza Type B (ZI) Negative Influenza A & B Note See Note 10/31/23 10/31/23 10:11 15:01 WBC RBC Hgb Hct MCV MCH MCHC RDW Plt Count MPV Immature Gran % (Auto) Neut % (Auto) Lymph % (Auto) [place] % (Auto) Eos % (Auto) Baso % (Auto) Lymph # (Auto) [place] # (Auto) Eos # (Auto) Baso # (Auto) Abs Immat Gran (auto) Absolute Neuts (auto) Absolute Nucleated RBC Nucleated RBC % (auto) Smear Tech's Comments Sodium Potassium Chloride Carbon Dioxide Anion Gap BUN Creatinine Estim Creat Clear Calc Estimated GFR Random Glucose Lactic Acid 1.5 Calcium Magnesium Total Bilirubin AST ALT Alkaline Phosphatase Troponin I High Sens Total Protein Albumin Urine Color Yellow Urine Appearance Clear Urine pH 5.5 Ur Specific [place] >= 1.030 H Urine Protein Trace Urine Glucose (UA) Negative Urine Ketones Trace Urine Blood Trace H Urine Nitrite Negative Ur Leukocyte Esterase Negative Urine RBC 0-2 Urine WBC 6-10 H Ur Squamous Epith Cells 6-10 Urine Bacteria 1+ Hyaline Casts 0-2 COVID-19 (LETY) COVID-19 Clin Com Influenza Type A (ZI) Influenza Type B (ZI) Influenza A & B Note Narrative Narrative: Date of Service: 10/31/23 Procedure(s): ECG 12 lead EKG Test Reason : BACK PAIN Vent. Rate : 092 BPM Atrial Rate : 092 BPM Normal sinus rhythm Rightward axis Pulmonary disease pattern Nonspecific ST and T wave abnormality Abnormal ECG When compared with ECG of 04-MAY-2019 15:10, ST now depressed in Lateral leads Chest X-Ray 10/31/23 11:01 IMPRESSION: No acute intrathoracic disease. Abdomen/Pelvis CT 10/31/23 11:02 IMPRESSION: 1. Obstructing 2 mm proximal right ureteral calculus with associated pelvocaliectasis and perinephric stranding consistent with forniceal rupture. 2. Incidental note made of benign Bosniak class I renal cysts which need no additional imaging or follow-up, L1 compression fracture and degenerative changes L2-L3. Airway Mallampati Class: III TM Dist: >3cm Neck ROM: Full Loose/Missing/Broken Teeth: Yes (Poor dentition. Many missing. Many broken. Many loose- front teeth loose. Aware of possibility of dislodgement and loss with oral airway placement/ instrumentation) Heart: RRR Lungs: CTAB Assessment and Plan Assessment Anesthesia Assessment: Anesthesia Plan Discussed and Chart Reviewed Final Anesthetic Review Family History of Problems with Anesthesia: No History of Problems with Anesthesia: No NPO: Yes ASA Class: IV and Emergency Final Preanesthetic Review: No Changes in Pt Med Stat, Meds/Allgs Chart Reviewed, Consent Obtained/Reviewed and Anes Risks/Benef Reviewed Patient Risk: High Procedure Risk: Low Assessment/Block/Sedation in SS: Assess/Block/Sedation-SS Anesthetic Plan Anesthetic Plan: MAC: (GA only if necessary ) Disposition: Standard PACU and Inp. Admit - Standard Bed
[2023-10-31] MEDS: fentaNYL citrate/PF 100 MCG/2 ML VIAL 50 MCG IVPUSH (16:17)
--- NOTE | 2023-10-31 17:24 | P.OP_ITS ---
Operative Note Operative Note Date of Service: 10/31/23 Narrative: PreOperative Diagnosis:?? Right obstructed ureteral stone, pyelonephritis Post Operative Diagnosis:?? ?Right obstructed ureteral stone, pyelonephritis Procedure: - cystoscopy, right stent insertion, size 6 fr by Multi-length (22-32 cm) Surgeon:?Dr Arina Garces Anesthesia:?MAC Procedure: After informed consent was verified the patient was brought to the operating placed on the OR table in supine position.? IV sedation was administered per protocol.? The patient was placed in lithotomy position, prepped and draped in the usual sterile fashion.? Safety pause time-out and side of surgery confirmed.? Antibiotics confirmed. 2%lidocaine jelly was inserted transuret hrally. A 22 Mongolian cystoscope was inserted transurethrally, The bladder was visualized.? Both ureteric orifices were in normal position. The? right ureteric orifice was cannulated? A hydrophilic guidewire was placed up to the level of the renal pelvis under fluoroscopy, there was remaining contrast in the renal pelvis from the previous CT scan thus a retrograde examination was not performed, the guide wire was moved and urine was sent from the kidney for culture. The guide wire was replaced and a A 6 fr by Multi-length (22-32 cm) ureteral stent was passed over the guide wire under fluoroscopic guidance. The guide wire was removed. The bladder was emptied.? The rigid cystoscope was removed. ? 2% lidocaine jelly was again inserted transurethrally. The patient tolerated the procedure well and was brought to the recovery room in stable condition. Complications: None Drains: Ureteral stent as dictated above
[2023-10-31] MEDS: 0.9 % Sodium Chloride Flush 3 ML SYRINGE IVFLUSH (19:40)
[2023-10-31] MEDS: 0.9 % Sodium Chloride 1,000 ML 80 ML IVCONT (19:40)
--- NOTE | 2023-10-31 22:15 | PC.NURSE ---
SETTER OFF reported patient voided twice sufficient amt,DTV #3 at 0030
[2023-11-01] MEDS: 0.9 % Sodium Chloride 1,000 ML 80 ML IVCONT (03:39)
[2023-11-01 04:15] VITALS: O2SAT 97
[2023-11-01 06:08] LABS: MANUAL DIFF FLAG NO
[2023-11-01 06:36] LABS: Anion Gap 12 (12-20); Blood Urea Nitrogen 14 mg/dL (9-16); Calcium 8.9 mg/dL (8.4-10.2); Carbon Dioxide 24 mmol/L (22-29); Chloride 109 mmol/L (96-108); Creatinine Clr Calc Pharmacy 63.6; Estimated Glomerular Filt Rate > 60; Glucose Random 118 mg/dL (60-115); Potassium 3.9 mmol/L (3.3-5.1); Sodium 141 mmol/L (135-145)
[2023-11-01 06:37] LABS: Basophils Percent Auto 0.2 % (0-2); Eosinophils Percent Auto 0.1 % (0-4); Hematocrit 36.1 % (37.0-47.0); Hemoglobin 12.4 g/dl (12.0-16.0); Imm Gran Abs Auto 0.09 X10*3/uL (0.00-0.03); Imm Gran Pct Auto 0.5 % (0.0-0.4); Lymphocytes Absolute Auto 1.2 X10*3/uL (1.2-4.9); Lymphocytes Percent Auto 6.6 % (20-40); Mean Corpuscular HGB Conc 34.3 g/dl (31.0-35.0); Mean Platelet Volume 9.8 fL (9.4-12.3); Monocytes Absolute Auto 1.3 X10*3/uL (0.1-1.2); Monocytes Percent Auto 7.1 % (2-11); Neutrophils Absolute Auto 16.2 x10*3/uL (2.0-8.3); Neutrophils Percent Auto 85.5 % (45-73); Platelet Count 266 X10*3/uL (160-400); Red Blood Count 3.54 X10*6/uL (4.20-5.50); Red Cell Distribution Width 12.4 % (11.0-16.0); White Blood Count 18.9 X10*3/uL (4.8-10.8)
[2023-11-01 07:29] VITALS: BP 123/57; PULSE 78; RESP 18; TEMP 36.3; O2SAT 98
[2023-11-01] MEDS: Cholecalciferol (Vitamin D3) 25 MCG TABLET 125 MCG PO (07:51)
[2023-11-01] MEDS: amLODIPine Besylate 10 MG TABLET PO (07:51)
[2023-11-01] MEDS: Atorvastatin Calcium 40 MG TABLET PO (07:51)
--- NOTE | 2023-11-01 09:20 | HO.POSTANES ---
Post Anesthesia Evaluation Post Anesthesia Evaluation Date of Service: 11/01/23 Vital Signs: Vital Signs Temp Pulse Resp BP Pulse Ox O2 Del Method O2 Flow Rate 11/01/23 07:29 97.4 F 78 18 123/57 L 98 Nasal Cannula 2 11/01/23 04:15 97 Nasal Cannula 2 10/31/23 23:24 97.7 F 69 18 115/52 L 92 Nasal Cannula 2 10/31/23 22:05 94 Nasal Cannula Anesthesia: Monitored Mental Status: Awake Pain Control: Satisfactory Nausea/Vomiting: None Hydration: Adequate Anesthesia-Related Issues: No Anes. Related Issues
[2023-11-01 09:28] VITALS: O2SAT 94
--- NOTE | 2023-11-01 09:51 | MHC.CM.PN ---
IMM delivered. Patient is from home w/ significant other, Jalen. Patient ambulates w/ a cane, but is otherwise independent. [facility] [phone]. PCP: Lilly Pace NP HCP: Requested from [facility] [employer] DP: Goal is home self care, S.O. to transport. Patient is not open to services at this time. If services are recommended and patient is agreeable, can be provided by [facility] (call Annika). DC summary should be faxed to [facility] at [phone]. Per Annika, they will reconcile meds and fill all prescriptions. If sent elsewhere will not be covered. CM will continue to follow for DC needs.
[2023-11-01] MEDS: cefTRIAXone sodium 1 GM in 0.9 % Sodium Chloride 50 ML IV (13:00)
[2023-11-01 14:52] VITALS: BP 117/56; PULSE 79; RESP 18; TEMP 36.2; O2SAT 93
[2023-11-01] MEDS: 0.9 % Sodium Chloride Flush 3 ML SYRINGE IVFLUSH ×2 (15:23→23:09)
--- NOTE | 2023-11-01 15:32 | HO.PM.IMPN ---
Subjective Subjective Date of Service: 11/01/23 Interval History: uti, pyelonephritis Review of Systems Producing little amount of urine, for p.o. intake Urinary pain seems to be improving Physical Exam Vital Signs: Vital Signs: Last Vital Signs Temp 97.2 F 11/01/23 14:52 Pulse 79 11/01/23 14:52 Resp 18 11/01/23 14:52 BP 117/56 L 11/01/23 14:52 Pulse Ox 93 11/01/23 14:52 O2 Del Method Room Air 11/01/23 14:52 O2 Flow Rate 2 11/01/23 07:29 Oxygen Flow Rate 1 11/01/23 09:28 BMI result Body Mass Index 23.4 Appearance: Alert.? Oriented X3.? cvs: rrr, [id number]. res: clear to auscultation ,no rhonchii or wheezing abd: no rebound or guarding ,nt, bs present. ext pulses present , no cyanosis . neuro: axo3 , nonfocal. Objective Data Active Medications Acetaminophen (Acetaminophen 325 Mg Tablet) 650 mg PO Q6H PRN PRN Reason: Pain, Mild (Pain Scale 1-3) Amlodipine Besylate (Amlodipine Besylate 10 Mg Tablet) 10 mg PO DAILY [facility]; Protocol Last Admin: 11/01/23 07:51 Dose: 10 mg Documented By: GEORGIE Atorvastatin Calcium (Atorvastatin Calcium 40 Mg Tablet) 40 mg PO DAILY [facility] Last Admin: 11/01/23 07:51 Dose: 40 mg Documented By: GEORGIE Ceftriaxone Sodium 1 gm/ (Sodium Chloride) 50 mls @ 100 mls/hr IV Q24H [facility] Last Infusion: 11/01/23 13:48 Dose: Infused Documented By: GEORGIE [facility] 1,000 mg in 100 mls @ 400 mls/hr IV ONCE PRN PRN Reason: Pain, Moderate(Pain Scale 4-6) Morphine Sulfate (Morphine Sulfate 4 Mg/Ml Cartridge) 2 mg IVPUSH Q4H PRN; Protocol PRN Reason: Pain, Severe (Pain Scale 7-10) Ondansetron HCl (Ondansetron Hcl 4 Mg/2 Ml Vial) 4 mg IVPUSH Q8H PRN PRN Reason: Nausea and Vomiting Oxycodone HCl (Oxycodone Hcl Immed Release 5 Mg Tablet) 5 mg PO Q6H PRN PRN Reason: Pain, Moderate(Pain Scale 4-6) Senna (Sennosides 8.6 Mg Tablet) 17.2 mg PO BEDTIME PRN PRN Reason: Constipation Sodium Chloride (0.9 % Sodium Chloride Flush 3 Ml Syringe) 3 ml IVFLUSH QSHIFT [facility] Last Admin: 11/01/23 15:23 Dose: 3 ml Documented By: PETER Vitamin D (Cholecalciferol (Vitamin D3) 25 Mcg Tablet) 125 mcg PO DAILY [facility] Last Admin: 11/01/23 07:51 Dose: 125 mcg Documented By: GEORGIE Labs 11/01/23 05:56 11/01/23 05:56 Labs: Laboratory Results - last 24 hr 11/01/23 05:56 MCV 102.0 H MCH 35.0 H MCHC 34.3 RDW 12.4 Plt Count 266 MPV 9.8 Immature Gran % (Auto) 0.5 H Neut % (Auto) 85.5 H Lymph % (Auto) 6.6 L [place] % (Auto) 7.1 Eos % (Auto) 0.1 Baso % (Auto) 0.2 Lymph # (Auto) 1.2 [place] # (Auto) 1.3 H Eos # (Auto) 0.0 Baso # (Auto) 0.0 Abs Immat Gran (auto) 0.09 H Absolute Neuts (auto) 16.2 H Absolute Nucleated RBC 0.000 Nucleated RBC % (auto) 0.0 Anion Gap 12 Estim Creat Clear Calc 63.6 Estimated GFR > 60 Random Glucose 118 H Calcium 8.9 D Microbiology Microbiology Results: Microbiology 10/31/23 Unknown Urine Culture - Preliminary Urine clean catch - Urine lamb top Culture too young to evaluate. 10/31/23 17:00 Urine Culture - Preliminary Urine Other - Nephrostomy No growth to date. 10/31/23 10:12 Blood Culture - Preliminary Blood - Venous No growth after 24 hours. 10/31/23 10:11 Blood Culture - Preliminary Blood - Venous No growth after 24 hours. Assessment and Plan (1) Acute kidney injury: Status: Acute (2) Obstructive uropathy: Status: Acute (3) Kidney stone: Status: Acute (4) Pyelonephritis: Status: Acute Plan 68-year-old female with history of hypertension, hyperlipidemia who is a current 1 pack per day smoker with >40+ pack-year history admitted for further managment of acute pyelonephritis with R sided obstructive uropathy and forniceal rupture R sided Obstructive uropathy with forniceal rupture CT abd/pelvis shows obstructing 2 mm proximal right ureteral calculus with associated pelvocaliectasis and perinephric stranding consistent with forniceal rupture UA with trace blood, positive urinary sediment, 1+ bacteria, elevated specific gravity. Negative leukocyte esterase and nitrites urology saw:Right obstructed ureteral stone, pyelonephritis urine cultures pending plan: continue ceftriaxone 1g daily (initiated 10/31), encouraged for p.o. hydration, urinating little but frequently Renal function and electrolytes seems fine Post-operative hypoxia-possible likely has underlying COPD given 50+ pack year smoking history -Continue supplemental oxygen to maintain oximetry >92%, wean as tolerated -improving with Incentive spirometry,chest physio,nebs. acute kidney injury Improved with hydration and also status post stent. HTN bp reasonably controlled continue amlodipine 10 mg. Hold lisinopril in due to recent JEET. HLD-Continue statin Alcohol use disorder -reports drinking 4-5 shots daily, last drink 48 hours ago -no evidence of withdrawal at this time. Denies hx w/d seizure/dts. cigarette smoker-cessation counseling declines NRT L1 compression fracture, chronicity unknown-outpt follow up DVT prophylaxis- SCPs Full code Ongoing hospitalization need: obstructive uropathy complicated by acute pyelonephritis and JEET requiring surgical intervention, IV abx, IVF, and close monitoring of renal function/lytes, also monitor per urinary output, Urology: Follow-up. Quality Stroke Does the patient have a stroke diagnosis?: No VTE Prior VTE?: No VTE Risk Level:: Medical - moderate - high VTE Device Contraindication: N/A - Device Ordered VTE Drug Contraindication: Treatment Not Indicated
--- NOTE | 2023-11-01 15:33 | PC.NURSE ---
patient reports getting up to urinate 26 times,urinates a few drops each time,reports little pain with urination,I emptied commode for 100 ml of norma urine now,Dr. Smith notified,LEASING DIRECTOR notified of importance of I&O monitoring
[2023-11-01] MEDS: Albuterol/Iprat 2.5/0.5MG 3 ML AMPUL.NEB INHALE (19:50)
[2023-11-01 19:53] VITALS: PULSE 71; RESP 18; O2SAT 94
--- NOTE | 2023-11-01 20:38 | PC.NURSE ---
Addendum entered by Lisa Fuentes RN 11/01/23 20:53: Dr. Aguilar notified of patient voiding very small amts frequently,bladder scanned 0 ml Original Note: Patient bladder scanned by ROYAL lennon 0 ml,voiding small amts frequently
[2023-11-01] MEDS: Acetaminophen 325 MG TABLET 650 MG PO (20:40)
[2023-11-01] MEDS: Phenazopyridine HCL 100 MG TABLET PO (21:27)
--- NOTE | 2023-11-01 21:40 | PC.NURSE ---
Addendum entered by Lisa Fuentes RN 11/01/23 22:43: Patient reports good effects from pyridium,comfortable ,did not have to get up to urinate within the past hour Original Note: Pyridium administered,will monitor
[2023-11-01 23:22] VITALS: BP 120/61; PULSE 73; RESP 17; TEMP 36.2; O2SAT 94
[2023-11-02 07:46] VITALS: BP 138/66; PULSE 67; RESP 18; TEMP 36.2; O2SAT 93
[2023-11-02] MEDS: Albuterol/Iprat 2.5/0.5MG 3 ML AMPUL.NEB INHALE ×3 (08:13→20:25)
[2023-11-02 08:15] VITALS: PULSE 67; RESP 18; O2SAT 95
[2023-11-02] MEDS: amLODIPine Besylate 10 MG TABLET PO (08:24)
[2023-11-02] MEDS: Atorvastatin Calcium 40 MG TABLET PO (08:24)
[2023-11-02] MEDS: Tolterodine Tartrate LA 2 MG CAP.ER.24H PO (08:24)
[2023-11-02] MEDS: Cholecalciferol (Vitamin D3) 25 MCG TABLET 125 MCG PO (08:24)
[2023-11-02] MEDS: 0.9 % Sodium Chloride Flush 3 ML SYRINGE IVFLUSH ×3 (08:24→19:37)
--- NOTE | 2023-11-02 08:42 | P.PNUR_ITS ---
Subjective Subjective Date of Service: 11/02/23 Interval history: 68 year old female s/p right ureteral stent on 10/31/23 for obstructing ureteral stone, pyelonephritis. Clinically improving. urine c/s pending, c/o's urinary urgency, discussed with the patient that urinary symptoms are from the stent Physical Exam 2 Vital Signs: Vital Signs: Last Vital Signs Temp 97.1 F 11/02/23 07:46 Pulse 67 11/02/23 08:15 Resp 18 11/02/23 08:15 BP 138/66 11/02/23 07:46 Pulse Ox 93 11/02/23 07:46 O2 Del Method Room Air 11/02/23 07:46 O2 Flow Rate 2 11/01/23 23:22 Oxygen Flow Rate 1 11/01/23 09:28 BMI result Body Mass Index 23.4 Const: General: cooperative, healthy appearing and no acute distress O rientation/consciousness: patient oriented x3 HEENT: Head: Yes normal to inspection, Yes normocephalic and Yes atraumatic Eyes: Conjunctivae: conjunctivae normal Neck: Neck: Yes normal visual inspection and Yes trachea midline Chest: Chest palpation & inspection: normal inspection of the chest Resp: Effort & Inspection: normal respiratory effort Cardio: Rate: regular rate GI: Inspection: Yes normal to inspection Palpation (GI): Soft to palpation Skin: General skin exam: no rashes or lesions noted Neuro: General: patient oriented x3 Extrem: General: No edema Psych: Appearance: grossly normal Urology Results Labs 11/01/23 05:56 11/01/23 05:56 Progress Note: A&P Assessment and plan (1) Acute kidney injury: Status: Acute (2) Obstructive uropathy: Status: Acute (3) Kidney stone: Status: Acute (4) Pyelonephritis: Status: Acute Plan Urine c/s pending Clinically improving Anticholinergic on discharge, tolteridine or vesicare 10 mg daily DC on PO abx for 10 days FU for out patient management of stone Time Spent With Patient Time: Total time managing care of this patient today ____ minutes. Progress Note: Quality Stroke Does the patient have a stroke diagnosis?: No
[2023-11-02 09:10] LABS: Hemoglobin 13.4 g/dl (12.0-16.0); Mean Corpuscular HGB Conc 34.4 g/dl (31.0-35.0); Mean Corpuscular Hemoglobin 34.7 pg (27.0-33.0); Mean Platelet Volume 9.6 fL (9.4-12.3); Platelet Count 303 X10*3/uL (160-400); Red Blood Count 3.86 X10*6/uL (4.20-5.50); Red Cell Distribution Width 12.5 % (11.0-16.0); White Blood Count 12.3 X10*3/uL (4.8-10.8)
[2023-11-02] MEDS: cefTRIAXone sodium 1 GM in 0.9 % Sodium Chloride 50 ML IV (12:04)
--- NOTE | 2023-11-02 12:10 | PC.NURSE ---
Attempt to wean off O2, pt into the mid 80's, unsuccessful. notified, Pt back on 2L NC. Known Smoking History.
--- NOTE | 2023-11-02 14:36 | P.PNIM_ITS ---
Subjective Subjective Date of Service: 11/02/23 Interval History: uti, pyelonephritis Review of Systems Producing little amount of urine, for p.o. intake Urinary pain seems to be improving Physical Exam 2 Vital Signs: Vital Signs: Last Vital Signs Temp 97.1 F 11/02/23 07:46 Pulse 67 11/02/23 08:15 Resp 18 11/02/23 08:15 BP 138/66 11/02/23 07:46 Pulse Ox 93 11/02/23 07:46 O2 Del Method Room Air 11/02/23 07:46 O2 Flow Rate 2 11/01/23 23:22 Oxygen Flow Rate 1 11/01/23 09:28 BMI result Body Mass Index 23.4 Appearance: Alert.? Oriented X3.? cvs: rrr, [id number]. res: clear to auscultation ,no rhonchii or wheezing abd: no rebound or guarding ,nt, bs present. ext pulses present , no cyanosis . neuro: axo3 , nonfocal. Objective Data Active Medications Acetaminophen (Acetaminophen 325 Mg Tablet) 650 mg PO Q6H PRN PRN Reason: Pain, Mild (Pain Scale 1-3) Last Admin: 11/01/23 20:40 Dose: 650 mg Documented By: PETER Albuterol/Ipratropium (Albuterol/Iprat 2.5/0.5mg 3 Ml Ampul.Neb) 3 ml INHALE RQ4H WHILE AWAKE [facility] Last Admin: 11/02/23 11:38 Dose: Not Given Documented By: ELEN Non-Admin Reason: Patient Refused Amlodipine Besylate (Amlodipine Besylate 10 Mg Tablet) 10 mg PO DAILY [facility]; Protocol Last Admin: 11/02/23 08:24 Dose: 10 mg Documented By: JEFFREY Atorvastatin Calcium (Atorvastatin Calcium 40 Mg Tablet) 40 mg PO DAILY [facility] Last Admin: 11/02/23 08:24 Dose: 40 mg Documented By: JEFFREY Ceftriaxone Sodium 1 gm/ (Sodium Chloride) 50 mls @ 100 mls/hr IV Q24H [facility] Last Infusion: 11/02/23 12:34 Dose: Infused Documented By: JEFFREY Acetaminophen (Ofirmev) 1,000 mg in 100 mls @ 400 mls/hr IV ONCE PRN PRN Reason: Pain, Moderate(Pain Scale 4-6) Morphine Sulfate (Morphine Sulfate 4 Mg/Ml Cartridge) 2 mg IVPUSH Q4H PRN; Protocol PRN Reason: Pain, Severe (Pain Scale 7-10) Ondansetron HCl (Ondansetron Hcl 4 Mg/2 Ml Vial) 4 mg IVPUSH Q8H PRN PRN Reason: Nausea and Vomiting Oxycodone HCl (Oxycodone Hcl Immed Release 5 Mg Tablet) 5 mg PO Q6H PRN PRN Reason: Pain, Moderate(Pain Scale 4-6) Senna (Sennosides 8.6 Mg Tablet) 17.2 mg PO BEDTIME PRN PRN Reason: Constipation Sodium Chloride (0.9 % Sodium Chloride Flush 3 Ml Syringe) 3 ml IVFLUSH QSHIFT [facility] Last Admin: 11/02/23 12:35 Dose: 3 ml Documented By: JEFFREY Vitamin D (Cholecalciferol (Vitamin D3) 25 Mcg Tablet) 125 mcg PO DAILY [facility] Last Admin: 11/02/23 08:24 Dose: 125 mcg Documented By: JEFFREY Labs 11/02/23 08:46 11/01/23 05:56 Labs: Laboratory Results - last 24 hr 11/02/23 08:46 MCV 101.0 H MCH 34.7 H MCHC 34.4 RDW 12.5 Plt Count 303 MPV 9.6 Absolute Nucleated RBC 0.000 Nucleated RBC % (auto) 0.0 Microbiology Microbiology Results: Microbiology 10/31/23 10:12 Blood Culture - Preliminary Blood - Venous No growth after 48 hours. 10/31/23 10:11 Blood Culture - Preliminary Blood - Venous No growth after 48 hours. 10/31/23 Unknown Urine Culture - Final Urine clean catch - Urine lamb top 10/31/23 17:00 Urine Culture - Preliminary Urine Other - Nephrostomy No growth to date. Assessment and Plan (1) Acute kidney injury: Status: Acute (2) Obstructive uropathy: Status: Acute (3) Pyelonephritis: Status: Acute Plan 68-year-old female with history of hypertension, hyperlipidemia who is a current 1 pack per day smoker with >40+ pack-year history admitted for further managment of acute pyelonephritis with R sided obstructive uropathy and forniceal rupture R sided Obstructive uropathy with forniceal rupture CT abd/pelvis shows obstructing 2 mm proximal right ureteral calculus with associated pelvocaliectasis and perinephric stranding consistent with forniceal rupture UA with trace blood, positive urinary sediment, 1+ bacteria, elevated specific gravity. Negative leukocyte esterase and nitrites urology saw:Right obstructed ureteral stone, pyelonephritis urine cultures pending plan: continue ceftriaxone 1g daily (initiated 10/31), encouraged for p.o. hydration, urinating little but frequently-added tolterdine Renal function and electrolytes seems fine Post-operative hypoxia-possible likely has underlying COPD given 50+ pack year smoking history -Continue supplemental oxygen to maintain oximetry >92%, wean as tolerated -improving with Incentive spirometry,chest physio,nebs. acute kidney injury Improved with hydration and also status post stent. HTN bp reasonably controlled continue amlodipine 10 mg. Hold lisinopril in due to recent JEET. HLD-Continue statin Alcohol use disorder -reports drinking 4-5 shots daily, last drink 48 hours ago -no evidence of withdrawal at this time. Denies hx w/d seizure/dts. cigarette smoker-cessation counseling declines NRT L1 compression fracture, chronicity unknown-outpt follow up DVT prophylaxis- SCPs Full code Ongoing hospitalization need: obstructive uropathy complicated by acute pyelonephritis and JEET requiring surgical intervention, IV abx, IVF, and close monitoring of renal function/lytes, also monitor per urinary output, Urology: Follow-up. Quality Stroke Does the patient have a stroke diagnosis?: No VTE Prior VTE?: No VTE Risk Level:: Medical - moderate - high VTE Device Contraindication: N/A - Device Ordered VTE Drug Contraindication: Treatment Not Indicated
[2023-11-02 15:18] VITALS: PULSE 83; RESP 16; O2SAT 98
[2023-11-02 15:20] VITALS: BP 134/61; PULSE 77; RESP 19; TEMP 36; O2SAT 98
[2023-11-02 16:40] LABS: VBG Base Excess 2.4 mmol/L; VBG HCO3 26 mmol/L (22-26); VBG pCO2 36 mmHg; VBG pH 7.46 (7.32-7.43); VBG pO2 52 mmHg
[2023-11-02] MEDS: predniSONE 20 MG TABLET 40 MG PO (16:45)
[2023-11-02 17:11] LABS: Venous Blood Gas Refer to POC result
[2023-11-02 20:27] VITALS: PULSE 79; O2SAT 96
[2023-11-02 23:27] VITALS: BP 121/57; PULSE 77; RESP 17; TEMP 36.1; O2SAT 94
[2023-11-03 07:07] VITALS: BP 130/85; PULSE 69; RESP 18; TEMP 36.3; O2SAT 94
[2023-11-03] MEDS: Albuterol/Iprat 2.5/0.5MG 3 ML AMPUL.NEB INHALE (08:03)
[2023-11-03 08:05] VITALS: PULSE 69; RESP 18; O2SAT 95
[2023-11-03] MEDS: Cholecalciferol (Vitamin D3) 25 MCG TABLET 125 MCG PO (08:18)
[2023-11-03] MEDS: Atorvastatin Calcium 40 MG TABLET PO (08:18)
[2023-11-03] MEDS: amLODIPine Besylate 10 MG TABLET PO (08:18)
[2023-11-03] MEDS: 0.9 % Sodium Chloride Flush 3 ML SYRINGE IVFLUSH (08:19)
[2023-11-03] MEDS: predniSONE 20 MG TABLET 40 MG PO (08:19)
--- NOTE | 2023-11-03 08:58 | PC.NURSE ---
O2 with ambulation between 90-88 on RA. No resp distress Pt states I feel fine.
[2023-11-03] MEDS: Tolterodine Tartrate LA 4 MG CAP.ER.24H PO (10:44)
--- NOTE | 2023-11-03 11:36 | P.DS_ITS ---
DS: Providers Provider Date of Service: 11/03/23 Date of admission: 10/31/23 15:07 Date of discharge: 11/03/23 Primary care physician: Unknown Physician Consults: 10/31/23 15:01 Consult to Urology Routine Consulting Provider: Arina Garces Reason for consultation: pyelo, obstructive uropathy Attending physician on discharge: Liberty Smith Discharging clinician: Liberty Smith DS: Diagnosis Discharge Diagnosis (1) Acute kidney injury: Status: Acute (2) Obstructive uropathy: Status: Acute (3) Pyelonephritis: Status: Acute DS: Summary Hospital Course Hospital Course: 68-year-old female with history of hypertension, hyperlipidemia who is a current 1 pack per day smoker with >40+ pack-year history presented to the ED earlier today for evaluation of worsening right flank pain that has been ongoing for 3 days. She states she has also been unable to urinate since then. There has been no associated fevers, chills, abdominal pain, nausea, vomiting, dysuria, hematuria, increased urinary urgency. On arrival, vitals stable, though slightly hypertensive to 142/76 on admission. There is a leukocytosis of 21.7. Creatinine 1.43, baseline 0.76. BUN 19. Electrolyte levels normal. Lactic acid 1.5. Urinalysis significant for trace blood elevated specific gravity, 1+ bacteria and positive urinary sediment. No leukocyte esterase or nitrites. Negative for COVID-19, influenza. Chest x-ray negative for acute intrathoracic disease. CT abdomen/pelvis shows obstructing 2 mm proximal right ureteral calculus with associated pelvocaliectasis and perinephric stranding consistent with forniceal rupture. Incidentally noted are class 1 renal cysts that do not require additional follow-up as well as L1 compression fracture and degenerative changes in the lumbar spine. Bladder scan revealed 60ml, catheter placed. While in the ED, received 1 L IV NS, 1 g ceftriaxone, ondansetron, morphine. She has arrived to the floor from PACU s/p cystoscopy with stent placement. Reports resolution of right-sided flank pain but does continue to experience urinary urgency and dysuria. She is also hypoxic to 86% on room air postoperatively, now maintain oximetry 92% on 2 L. Hospital course: 68-year-old female with history of hypertension, hyperlipidemia who is a current 1 pack per day smoker with >40+ pack-year history admitted for further managment of acute pyelonephritis with R sided obstructive uropathy and forniceal ruptur e. R sided Obstructive uropathy with forniceal rupture: Patient was found to have CT abd/pelvis shows obstructing 2 mm proximal right ureteral calculus with associated pelvocaliectasis and perinephric stranding consistent with forniceal rupture, possible pyelonephritis,jeet, : Patient was started on IV antibiotics, blood cultures sent, also started on IV hydration, urine cultures sent,urology consulted: Patient had cystoscopy with right-sided ureteral stent: Subsequently patient seems to be improving, JEET resolved as well as leukocytosis resolved. No fever.Discussed with urology patient will go home with p.o. antibiotics for 10 days, in addition also added VESIcare. In addition patient has atelectasis on the chest x-ray: Had some desaturation intermittent but resolved, she has 50 year pack history of smoking, on lung exam also had wheezing yesterday. So possible underlying undiagnosed COPD: Patient was given albuterol inhaler and prednisone, also advised to use incentive swetha metry-patient seems to be improved significantly with the above supportive care. Patient will go home with p.o. albuterol inhaler and prednisone, patient was strongly advised to get a PFT done out patiently. Plan: Please complete cefuroxime 500 mg by mouth twice daily for 10 days and also added vesicare 5 mg po daily ( 2 weeks)- Follow-up with Urology out patiently. Patient will need PFT out patiently for undiagnosed COPD. Strongly advised to use incentive spirometry, inhaler, p.o. prednisone 40 mg daily for 4 more days. Patient was strongly advised to quit smoking Above management discussed with the patient in detail length-time spent 50 minute. Time Attestation Discharge coordination time: Greater than 30 minutes Quality: Safe Use of Opioids Does Pt have an Active Cancer Diagnosis on the Problem List?: No Quality: Stroke Does the patient have a stroke diagnosis?: No Physical Exam Vital Signs: Vital Signs: Last Vital Signs Temp 97.3 F 11/03/23 07:07 Pulse 69 11/03/23 08:05 Resp 18 11/03/23 08:05 BP 130/85 11/03/23 07:07 Pulse Ox 94 11/03/23 07:07 O2 Del Method Nasal Cannula 11/03/23 07:07 O2 Flow Rate 2 11/03/23 07:07 Oxygen Flow Rate 1 11/01/23 09:28 BMI result Body Mass Index 23.4 Appearance: Alert.? Oriented X3.? cvs: rrr, [id number] . res:air entry seems fair ,no rales or wheezing abd: no rebound or guarding ,nt, bs present. : no cva tenderness . ext pulses present , no cyanosis . neuro: axo3 , nonfocal. DS: Data Data Completed and Pending Labs on day of discharge: Laboratory Results - last 24 hr 11/02/23 16:28 VBG pH 7.46 H VBG pCO2 36 VBG pO2 52 VBG HCO3 26 VBG O2 Saturation 83.0 VBG Base Excess 2.4 Preliminary micro results at discharge 10/31/23 10:12 Blood Culture - Preliminary Blood - Venous No growth after 48 hours. 10/31/23 10:11 Blood Culture - Preliminary Blood - Venous No growth after 48 hours. Imaging Chest x-ray: Radiologist's impression: ITS Impressions Chest X-Ray 10/31/23 11:01 IMPRESSION: No acute intrathoracic disease. Abdomen/Pelvis CT 10/31/23 11:02 IMPRESSION: 1. Obstructing 2 mm proximal right ureteral calculus with associated pelvocaliectasis and perinephric stranding consistent with forniceal rupture. 2. Incidental note made of benign Bosniak class I renal cysts which need no additional imaging or follow-up, L1 compression fracture and degenerative changes L2-L3. Fleischner guidelines were followed. Guidance Fluoroscopy 10/31/23 17:22 IMPRESSION: Retrograde pyelogram Chest X-Ray 11/02/23 16:40 IMPRESSION: No acute cardiopulmonary disease. Discharge Plan Discharge Anticipated Discharge Date/Time: 11/03/23 09:54 Patient Disposition: Home, Self-Care Discharge Diagnosis: uti,obstructive uropathy s/p stent,atelactasis,possible undiangosed copd. Referrals: Physician,Unknown J [Primary Care Provider] - 1 Week Discharge Medications: New Proair Digihaler 90 mcg/actuation aero powdr breath act w/sensor 1 inh inhalation Q4-6H PRN (Reason: shortness of breath or wheezing) Qty: 1 0RF prednisone 20 mg tablet 40 mg PO DAILY Qty: 6 0RF cefuroxime axetil 500 mg tablet 500 mg PO BID Qty: 20 0RF omeprazole 20 mg capsule,delayed release(DR/EC) 20 mg PO DAILY Qty: 30 0RF solifenacin [Vesicare] 5 mg tablet 5 mg PO DAILY Qty: 14 0RF Continued atorvastatin 40 mg Tablet 40 mg PO DAILY aspirin 81 mg Tablet,Delayed Release (Dr/Ec) 81 mg PO DAILY amlodipine 10 mg Tablet 10 mg PO DAILY lisinopril 2.5 mg Tablet 2.5 mg PO DAILY cholecalciferol (vitamin D3) [Vitamin D3] 125 mcg (5,000 unit) Tablet 125 mcg PO DAILY Discharge Orders: Discharge Order (Routine); Ordered 11/03/23 Ordered By: Liberty Smith Diet: Advance to usual diet Activity on Discharge: As tolerated Stand Alone Forms: Patient Portal Discharge page Care Plan Goals: uti copd Health Concerns: complete ceftin 500 mg po bid for 10 days outpatient Pft's with pcp Plan of Treatment: as above. Assessment: as above. Patient Instructions: Acute Kidney Injury (GEN), Kidney Stones (GEN), COPD (Chronic Obstructive Pulmonary Disease) (GEN) Discharge Date/Time: 11/03/23 11:37
--- NOTE | 2023-11-03 11:38 | PC.NURSE ---
Pt left after pharmacy stated they could not fill her meds, will follow up with her own pharmacy.
== END 2023-11-03 11:37 | disposition home or self-care (01) | DRG 660 ==
LOC: HO.ED 13:40 → HO.EDOVER 15:08 → HO.S3 18:00
PROVIDERS: Physician Assistant Medical; Urology; Admitting Provider Physician Assistant; Emergency Provider Emergency Medicine Emergency Medical Services; Visit Provider Internal Medicine
PROC: 0T768DZ Dilation of Right Ureter with Intraluminal Device, Via Natural or Artificial Opening Endoscopic (ICD-10-PCS; principal; 2023-10-31 15:30)
DX: N20.1 Calculus of ureter (principal); J98.11 Atelectasis; N10 Acute pyelonephritis; N17.9 Acute kidney failure, unspecified; G35 Multiple sclerosis; F17.210 Nicotine dependence, cigarettes, uncomplicated; I10 Essential (primary) hypertension; E78.5 Hyperlipidemia, unspecified; J44.9 Chronic obstructive pulmonary disease, unspecified; Z71.6 Tobacco abuse counseling; Z20.822 Contact with and (suspected) exposure to COVID-19; Z79.82 Long term (current) use of aspirin; Z79.899 Other long term (current) drug therapy
CPT/HCPCS: 36415; 71045; 74177; 80048; 80053; 81001; 82803; 83605; 83735; 84484; 85025; 85027; 87040; 87070; 87086; 87205; 87502; 87635; 93005; 94640; 99285; C1758; C1769; C2617; J0690; J0696; J1100; J2250; J2270; J2405; J2704; J3010; Q9967

== ENCOUNTER → 2023-10-31 08:35 | Outpatient (BNV) | payer OTHER, SELFPAY | PROVIDERS: Admitting Provider Physician Assistant; Emergency Provider Emergency Medicine Emergency Medical Services; Visit Provider Internal Medicine Cardiovascular Disease | DX: R94.31 Abnormal electrocardiogram [ECG] [EKG] (principal) | CPT/HCPCS: 93010 ==

== ENCOUNTER → 2023-10-31 15:07 | Outpatient (BNV) | payer OTHER, SELFPAY | PROVIDERS: Admitting Provider Physician Assistant; Emergency Provider Emergency Medicine Emergency Medical Services; Visit Provider Urology | DX: N20.0 Calculus of kidney (principal); N12 Tubulo-interstitial nephritis, not specified as acute or chronic; N13.9 Obstructive and reflux uropathy, unspecified | CPT/HCPCS: 52332; 99222; 99232 ==

== ENCOUNTER → 2023-10-31 15:07 | Outpatient (BNV) | payer OTHER, SELFPAY | PROVIDERS: Admitting Provider Physician Assistant; Emergency Provider Emergency Medicine Emergency Medical Services; Visit Provider Physician Assistant | DX: N17.9 Acute kidney failure, unspecified (principal); N13.9 Obstructive and reflux uropathy, unspecified; N12 Tubulo-interstitial nephritis, not specified as acute or chronic | CPT/HCPCS: 99223; 99232; 99239 ==

== ENCOUNTER 2023-11-29 08:35 | Outpatient (AMB) | payer OTHER, SELFPAY ==
--- NOTE | 2023-11-29 08:52 | A.OFFVIS_ITS ---
Intake Intake Visit Reasons: disscus procedure Intake Note: Patient presents today to Discuss Procedure: Meds- Vesicare Allergies to Antibiotic- No Known Allergies Blood Thinner- Aspirin Cigar Patcher Required: No Accompanied by: Self / Same As Patient Allergies No Known Allergies [No Known Allergies*] Allergy (Verified 11/29/23 08:59) HPI HPI Comments History of Present Illness Details 68 year old female who was seen in the hospital in consult for JEET, 10/31/23. Patient with history of tobacco use. CTAP: Obstructing 2 mm proximal right ureteral calculus with associated pelvocaliectasis and perinephric stranding consistent with forniceal rupture. s/p right ureteral stent 11/01/23 She states she is on an abx for recent UTI prescribed by her PCP 10/29/23-Plan--cystoscopy, Right ureteros copy stone extraction possible laser lithotripsy, stent exhange [facility] Medical History Multiple sclerosis CVA (cerebral vascular accident) High cholesterol HTN (hypertension) Social History Household Members: Other Household Members Other:: roommate Housing: Apartment Do you presently have visiting nurse or other home services: No Patient Tobacco Use Status: Current everyday Tobacco user Cigarette Packs Per Day: 1 Cigarettes Per Day: 20.0 Years Smoked: 50 Second Hand Smoke Exposure: Yes service: No Review of Systems Const All systems reviewed & are unremarkable except as noted in HPI and below Reports no additional complaints Eyes Reports no additional complaints ENT Reports no additional complaints Card Denies dyspnea Resp Denies cough and Denies dyspnea GI Reports no additional complaints Reports no additional complaints Musc Reports no additional complaints Skin/Breast Denies rash and Denies unusual bruising Neuro Reports no additional complaints Psych Reports no additional complaints Endo Reports no additional complaints Yared/Lymph Reports no additional complaints Aller/Immun Reports no additional complaints Results Reviewed Results Reviewed: Date of Service: 10/31/23 EXAMINATION: CT ABDOMEN AND PELVIS WITH CONTRAST CLINICAL INFORMATION: Abdominal pain COMPARISON: None available. TECHNIQUE: Multidetector volumetric images were obtained from the superior aspect of the liver through the pubic symphysis following administration 85 mL of Omnipaque 350 intravenous contrast. Sagittal and coronal reformatted images were obtained on the technologist's workstation. Oral contrast: No This CT examination was performed using dose optimization techniques as appropriate, variously including the following: *Automated exposure control *Adjustment of mA and/or kV according to patient size (this includes techniques or standardized protocols for targeted exams where dose is matched to indication/reason for exam; i.e. extremities or head) *Use of iterative reconstruction technique DLP: 300 mGy-cm FINDINGS: LUNG BASES: The visualized lung bases are unremarkable. LIVER, GALLBLADDER, AND BILIARY TREE: The liver is normal in size, shape, and attenuation. There is a tiny 3 mm cyst in the right lobe of the liver (3:20). No worrisome solid focal hepatic lesion or biliary ductal dilatation is present. The gallbladder is unremarkable with no evidence of radiopaque gallstones, gallbladder wall thickening, or obvious pericholecystic inflammatory changes. PANCREAS: Unremarkable. SPLEEN: Unremarkable. ADRENAL GLANDS: Unremarkable. KIDNEYS AND URETERS: Right: There is an obstructing proximal ureteral calculus on the right measuring about 2 mm in size associated with pelvocaliectasis and perinephric stranding consistent with forniceal rupture. Small amount of fluid is present in the pararenal space. There are benign Bosniak class I right renal cysts which need no additional imaging or follow-up. No suspicious solid right renal masses are seen. No intrarenal calculi are noted. The ureter distal to this stone is unremarkable. Left: Aside from the presence of an upper pole benign Bosniak class I renal cyst which needs no additional imaging or follow-up, no abnormality is seen. BLADDER: Nearly empty but unremarkable. GASTROINTESTINAL TRACT: The small and large bowel are unremarkable. The appendix is unremarkable. ABDOMINAL WALL: No significant hernia is appreciated. LYMPH NODES: Normal. VASCULAR: Calcific atherosclerotic changes are present in the aorta and iliofemoral vessels. There is no evidence of an abdominal aortic aneurysm. PELVIC VISCERA: Unremarkable. OSSEOUS STRUCTURES: Degenerative changes are present at L2-L3 with disc space narrowing. There is a compression fracture involving the superior endplate of L1. IMPRESSION: 1. Obstructing 2 mm proximal right ureteral calculus with associated pelvocaliectasis and perinephric stranding consistent with forniceal rupture. 2. Incidental note made of benign Bosniak class I renal cysts which need no additional imaging or follow-up, L1 compression fracture and degenerative changes L2-L3. Assessment & Plan Assessment & Plan (1) Kidney stone: Code(s): N20.0 - Calculus of kidney (2) Obstructive uropathy: Code(s): N13.9 - Obstructive and reflux uropathy, unspecified (3) Pyelonephritis: Code(s): N12 - Tubulo-interstitial nephritis, not specified as acute or chronic Plan cystoscopy, Right ureteroscopy stone extraction possible laser lithotripsy, stent exhange Patient Instructions: The patient had an opportunity to ask questions regarding treatment plan. All questions were answered. Imaging, Laboratory studies and physical exam results were discussed and reviewed in detail. No major barriers to understanding were identified. The patient expressed understanding and agreement with the above treatment plan. The patient is aware they should contact our office by phone for worsening of their current condition or the appearance of new symptoms. Compliance is encouraged with any medications and followup testing that is ordered. It is a privilege to be allowed the opportunity to participate in the urologic care of your patient. If you have any questions or concerns regarding treatment for the above conditions please do not hesitate to contact me. The office telephone contact is [phone]. This note is constructed in part using voice recognition software. While every effort has been made to ensure accuracy medicaid nurse errors may have been included. Yours sincerely, Arina Garces MD Coding Level of Care Code Est Pt Level 4 (88334) Diagnoses Kidney stone N20.0 Obstructive uropathy N13.9 Pyelonephritis N12
== END 2023-11-29 09:33 | disposition home or self-care (01) ==
PROVIDERS: Visit Provider Urology
DX: N20.0 Calculus of kidney (principal); N13.9 Obstructive and reflux uropathy, unspecified; N12 Tubulo-interstitial nephritis, not specified as acute or chronic
CPT/HCPCS: 99214

== ENCOUNTER → 2023-11-29 08:35 | Outpatient (BNVA) | payer OTHER, SELFPAY | PROVIDERS: Visit Provider Urology | DX: N20.0 Calculus of kidney (principal); N13.9 Obstructive and reflux uropathy, unspecified; N12 Tubulo-interstitial nephritis, not specified as acute or chronic | CPT/HCPCS: 99212 ==

== ENCOUNTER 2024-01-02 05:47 | Day surgery (SDC) | payer OTHER, SELFPAY ==
--- NOTE | 2024-01-01 10:23 | P.CONAN_ITS ---
Documented by User: Rabia Washington NP 01/01/24 10:25 HPI - Anesthesia Eval Consult details Narrative: 89yo F for Right Cystoscopy, Ureteroroscopy, Retro, Laser,stent exchange s/p cysto, etc 10/2023 with TIVA PMFSH Active Problems Active Problems: All Active Problems (Updated 11/11/23 @ 00:01 by Chandrakant Valdivia) Acute kidney injury (Acute) Obstructive uropathy (Acute) Kidney stone (Acute) Pyelonephritis (Acute) Past Medical History Medical History (Updated 01/02/24 @ 06:15 by Payton Cage RN) GERD (gastroesophageal reflux disease) Multiple sclerosis CVA (cerebral vascular accident) High cholesterol HTN (hypertension) Family History Family history of problems with anesthesia: No Surgical History Surgical History (Updated 01/02/24 @ 06:07 by Payton Cage RN) History of esophageal surgery Hx of cystoscopy History of Problems with Anesthesia: No Social History Social History Household Members: Other Household Members Other:: roommate Housing: Apartment Do you presently have visiting nurse or other home services: No Patient Tobacco Use Status: Current everyday Tobacco user Tobacco use type: Cigarette Cigarette Packs Per Day: 1 Cigarettes Per Day: 20 Years Smoked: 50 Second Hand Smoke Exposure: Yes Use of substances other than those prescribed or required for medical reasons: No Are you DNR?: No Advance Directives: No Advance Directives Information Provided: Yes service: No Meds Allergies Allergy/AdvReac Type Severity Reaction Status Date / Time No Known Allergies Allergy Verified 01/02/24 06:07 [No Known Allergies*] Home Medications Medication Instructions Recorded Confirmed Last Taken Type amlodipine 10 mg tablet 10 mg PO DAILY 10/31/23 01/02/24 01/02/24 04:30 History aspirin 81 mg tablet,delayed 81 mg PO DAILY 10/31/23 01/02/24 01/01/24 History release atorvastatin 40 mg tablet 40 mg PO DAILY 10/31/23 01/02/24 01/02/24 04:30 History cholecalciferol (vitamin D3) 125 125 mcg PO DAILY 10/31/23 01/02/24 Unknown H istory mcg (5,000 unit) tablet (Vitamin D3) lisinopril 2.5 mg tablet 2.5 mg PO DAILY 10/31/23 01/02/24 Unknown History Exam Pertinent Lab Results Pertinent Lab Results: Laboratory Tests 10/31/23 10/31/23 10/31/23 09:03 09:04 09:25 WBC 21.7 H RBC 4.34 Hgb 15.2 Hct 43.0 MCV 99.1 H MCH 35.0 H MCHC 35.3 H RDW 12.5 Plt Count 318 MPV 9.2 L Immature Gran % (Auto) 0.5 H Neut % (Auto) 83.4 H Lymph % (Auto) 6.6 L Tompkins % (Auto) 9.3 Eos % (Auto) 0.0 Baso % (Auto) 0.2 Lymph # (Auto) 1.4 Tompkins # (Auto) 2.0 H Eos # (Auto) 0.0 Baso # (Auto) 0.0 Abs Immat Gran (auto) 0.11 H Absolute Neuts (auto) 18.1 H Absolute Nucleated RBC 0.000 Nucleated RBC % (auto) 0.0 Smear Tech's Comments VERIFIED Sodium 140 Potassium 3.7 Chloride 105 Carbon Dioxide 25 Anion Gap 14 BUN 19 H Creatinine 1.43 H Estim Creat Clear Calc 36.9 Estimated GFR 36 Random Glucose 139 H Lactic Acid Calcium 10.2 Magnesium 1.7 Total Bilirubin 1.1 H AST 15 ALT 13 Alkaline Phosphatase 82 Troponin I High Sens 3.1 Total Protein 7.7 Albumin 4.2 Urine Color Urine Appearance Urine pH Ur Specific Alpine Urine Protein Urine Glucose (UA) Urine Ketones Urine Blood Urine Nitrite Ur Leukocyte Esterase Urine RBC Urine WBC Ur Squamous Epith Cells Urine Bacteria Hyaline Casts COVID-19 (LETY) Negative COVID-19 Clin Com See Note Influenza Type A (ZI) Negative Influenza Type B (ZI) Negative Influenza A & B Note See Note 10/31/23 10/31/23 10:11 15:01 WBC RBC Hgb Hct MCV MCH MCHC RDW Plt Count MPV Immature Gran % (Auto) Neut % (Auto) Lymph % (Auto) Tompkins % (Auto) Eos % (Auto) Baso % (Auto) Lymph # (Auto) Tompkins # (Auto) Eos # (Auto) Baso # (Auto) Abs Immat Gran (auto) Absolute Neuts (auto) Absolute Nucleated RBC Nucleated RBC % (auto) Smear Tech's Comments Sodium Potassium Chloride Carbon Dioxide Anion Gap BUN Creatinine Estim Creat Clear Calc Estimated GFR Random Glucose Lactic Acid 1.5 Calcium Magnesium Total Bilirubin AST ALT Alkaline Phosphatase Troponin I High Sens Total Protein Albumin Urine Color Yellow Urine Appearance Clear Urine pH 5.5 Ur Specific Alpine >= 1.030 H Urine Protein Trace Urine Glucose (UA) Negative Urine Ketones Trace Urine Blood Trace H Urine Nitrite Negative Ur Leukocyte Esterase Negative Urine RBC 0-2 Urine WBC 6-10 H Ur Squamous Epith Cells 6-10 Urine Bacteria 1+ Hyaline Casts 0-2 COVID-19 (LETY) COVID-19 Clin Com Influenza Type A (ZI) Influenza Type B (ZI) Influenza A & B Note Narrative Narrative: Date of Service: 10/31/23 Procedure(s): ECG 12 lead EKG Test Reason : BACK PAIN Vent. Rate : 092 BPM Atrial Rate : 092 BPM Normal sinus rhythm Rightward axis Pulmonary disease pattern Nonspecific ST and T wave abnormality Abnormal ECG When compared with ECG of 04-MAY-2019 15:10, ST now depressed in Lateral leads Chest X-Ray 10/31/23 11:01 IMPRESSION: No acute intrathoracic disease. Abdomen/Pelvis CT 10/31/23 11:02 IMPRESSION: 1. Obstructing 2 mm proximal right ureteral calculus with associated pelvocaliectasis and perinephric stranding consistent with forniceal rupture. 2. Incidental note made of benign Bosniak class I renal cysts which need no additional imaging or follow-up, L1 compression fracture and degenerative changes L2-L3. Airway Mallampati Class: III TM Dist: >3cm Neck ROM: Full Loose/Missing/Broken Teeth: Yes (Poor dentition. Many missing. Many broken. Many loose- front teeth loose. Aware of possibility of dislodgement and loss with oral airway placement/ instrumentation) Assessment and Plan Assessment Anesthesia Assessment: Chart Reviewed Final Anesthetic Review Family History of Problems with Anesthesia: No History of Problems with Anesthesia: No Documented by User: David Vallejo MD 01/02/24 07:06 [facility] Past Medical History Medical History (Updated 01/02/24 @ 06:15 by Payton Cage RN) GERD (gastroesophageal reflux disease) Multiple sclerosis CVA (cerebral vascular accident) High cholesterol HTN (hypertension) Surgical History Surgical History (Updated 01/02/24 @ 06:07 by Payton Cage RN) History of esophageal surgery Hx of cystoscopy Social History Social History Household Members: Other Household Members Other:: roommate Housing: Apartment Do you presently have visiting nurse or other home services: No Patient Tobacco Use Status: Current everyday Tobacco user Tobacco use type: Cigarette Cigarette Packs Per Day: 1 Cigarettes Per Day: 20 Years Smoked: 50 Second Hand Smoke Exposure: Yes Use of substances other than those prescribed or required for medical reasons: No Are you DNR?: No Advance Directives: No Advance Directives Information Provided: Yes service: No Meds Allergies Allergy/AdvReac Type Severity Reaction Status Date / Time No Known Allergies Allergy Verified 01/02/24 06:07 [No Known Allergies*] Home Medications Medication Instructions Recorded Confirmed Last Taken Type amlodipine 10 mg tablet 10 mg PO DAILY 10/31/23 01/02/24 01/02/24 04:30 History aspirin 81 mg tablet,delayed 81 mg PO DAILY 10/31/23 01/02/24 01/01/24 History release atorvastatin 40 mg tablet 40 mg PO DAILY 10/31/23 01/02/24 01/02/24 04:30 History cholecalciferol (vitamin D3) 125 125 mcg PO DAILY 10/31/23 01/02/24 Unknown History mcg (5,000 unit) tablet (Vitamin D3) lisinopril 2.5 mg tablet 2.5 mg PO DAILY 10/31/23 01/02/24 Unknown History Exam Airway Heart: rrr Lungs: rhonchi Assessment and Plan Final Anesthetic Review NPO: Yes ASA Class: III Final Preanesthetic Review: No Changes in Pt Med Stat, Meds/Allgs Chart Reviewed, Consent Obtained/Reviewed and Anes Risks/Benef Reviewed Patient Risk: Intermediate Procedure Risk: Intermediate Anesthetic Plan Anesthetic Plan: GA Disposition: Standard PACU
[2024-01-02] VITALS (8 sets, daily range): BP systolic 109–132; BP diastolic 58–77; PULSE 68–77; RESP 16–18; TEMP 36.3–37.2; O2SAT 91–100; BMI 23.6
--- NOTE | ~2024-01-02 | FL_ITS ---
EXAMINATION: XR FLUOROSCOPY WITH IMAGES CLINICAL INFORMATION: Right stone COMPARISON: None available. TECHNIQUE: Fluoroscopy Supervised By: Arnoldo. Fluoroscopy Time: 8.6. Cumulative Dose: 3.7 mGy. Images: 1. FL/FL guidance in OR FINDINGS/IMPRESSION: Fluoroscopic image of right hemiabdomen with catheter coming from below.
[2024-01-02] MEDS: Lactated Ringers 1,000 ML 100 ML IVCONT (06:32)
--- NOTE | 2024-01-02 07:30 | MHC.SHP ---
Pre-Procedural Eval Section A - 24 Hr Update-Section A only Date of Service: 01/02/24 The patient is an INPATIENT: No The patient has been examined within 24 hours of the surgical procedure. The History & Physical has been completed within 30 days and I have reviewed it.: No Section B - Complete if H&P > 30 days Chief Complaint: Calculus of kidney Details of Present Illness: 68 y/o female, h/o obstructing 2 mm ureteral stone s/p stent, complains of urgency and urine leakage since stent insertion Relevant Family History (Specify if Yes): No Allergies: Allergies Allergy/AdvReac Type Severity Reaction Status Date / Time No Known Allergies Allergy Verified 01/02/24 06:07 [No Known Allergies*] Review of Systems Review of Systems Comment: 10 point ROS neg other than stated in HPI Exam Surgical H&P Exam: Normal: Heart, Normal: Lungs and Normal: Abdomen and Not Evaluated: HEENT (poor dentition, loose teeth) Plan Diagnosis/Plan: Unchanged I have reviewed the history and physical and performed a pertinent physical examination on my patient. No changes have occurred unless specified. Cysto right ureteroscopy possible laser, stent exchange vs removal Time Spent With Patient Time: Total time managing care of this patient today ____ minutes.
--- NOTE | 2024-01-02 08:29 | W.PM.OPN ---
Operative Note Operative Note Date of Service: 01/02/24 Narrative: PreOperative Diagnosis:?? Obstructive uropathy, right secondary to 2 mm proximal ureteral stone status post right ureteral stent Post Operative Diagnosis:?? Obstructive uropathy, right secondary to 2 mm proximal ureteral stone status post right ureteral stent, no stone was visualized. Procedure: Cystoscopy, Right ureteroscopy ureteroscopy right ureteral stent removal Surgeon:?Dr Arina Garces Anesthesia:? General Indications: The patient initially was evaluated for obstructive uropathy secondary to right proximal 2 mm ureteral stone which was noted on CT KUB 10/31/2023. A right ureteral stent was placed at that time. It was discussed with the patient that the stone may pass while the stent was present. She is brought in for further evaluation. Procedure: After informed consent was verified the patient was brought to the operating placed on the OR table in supine position.? General Anesthesia was administered per protocol.? The patient was placed in lithotomy position, prepped and draped in the usual sterile fashion.? Safety pause time-out and side of surgery confirmed.? Antibiotics confirmed. A 22 Kosovan cystoscope was inserted transurethrally, urine was sent for culture. The bladder was visualized.? Both ureteric orifices were in normal position. The right ureteral stent was curled in the bladder. The?distal end of the ureteral stent was grasped with the flexible grasping forceps. The stent was pulled retrograde through the urethra and removed. An open-ended ureteral catheter and guidewire was passed into the right ureteral orifice the guidewire was passed up into the kidney. The cystoscope was removed, leaving the guidewire in place. The guidewire was used as the safety and was attached to the draping. The semi rigid ureteroscope was passed transurethrally into the right ureter up to the right UPJ. There was no stone visualized. The semi rigid ureteroscope was removed. The disposable flexible ureteroscope was then passed over the guidewire the calyces were evaluated a stone was not visualized. The ureteroscope was removed. The cystoscope was passed transurethrally into the bladder. There were bladder spasms noted and efflux of urine was not vsualized from either ureteral orifice. The cystoscope was removed. The patient tolerated the procedure well and was brought to the recovery room in stable condition. Complications: None Drains: None
--- NOTE | 2024-01-02 09:04 | PC.NURSE ---
Incentive spirometry initiated. Pe demonstrates good technique, inspired volumes 1250 ml.
== END 2024-01-02 10:17 | disposition home or self-care (01) ==
PROVIDERS: Visit Provider Urology
PROC: (CPT 52310; principal; 2024-01-02 07:30)
DX: N13.9 Obstructive and reflux uropathy, unspecified (principal); Z46.6 Encounter for fitting and adjustment of urinary device
CPT/HCPCS: 52310; 87086; 87088; 87186; C1769; J0690; J1100; J2250; J2371; J2405; J2704; J3010; Q9967

== ENCOUNTER → 2024-01-02 05:47 | Outpatient (BNV) | payer OTHER, SELFPAY | PROVIDERS: Visit Provider Urology | DX: N20.1 Calculus of ureter (principal); Z96.0 Presence of urogenital implants | CPT/HCPCS: 52310 ==

== ENCOUNTER 2024-02-08 08:17 | Outpatient (AMB) | payer OTHER, SELFPAY ==
--- NOTE | 2024-02-08 07:16 | A.OFFVIS_ITS ---
Intake Visit Reasons: Ureteroscopy removal of stent- follow up Intake Note: Patient presents today for post op Ureteroscopy Stent Removal: Meds- Vesicare Allergies to Antibiotic- No Known Allergies Blood Thinner- Aspirin Shelter Supervisor Required: No Accompanied by: Self / Same As Patient Allergies No Known Allergies [No Known Allergies*] Allergy (Verified 02/08/24 08:19) Medication List - Last Reconciled 02/08/24 by Arina Garces MD albuterol sulfate 90 mcg/actuation (Proair Digihaler) 1 inh inhalation Q4-6H PRN amlodipine 10 mg PO DAILY aspirin 81 mg PO DAILY atorvastatin 40 mg PO DAILY cholecalciferol (vitamin D3) (Vitamin D3) 125 mcg PO DAILY levofloxacin 500 mg PO DAILY 5 days lisinopril 2.5 mg PO DAILY omeprazole 20 mg PO DAILY solifenacin (Vesicare) 5 mg PO DAILY HPI Comments Details: 02/08/2024--[place] is status post Cystoscopy, Right ureteroscopy ureteroscopy right ureteral stent removal, on 01/02/2024. She was initially evaluated due to an obstructing 2 mm proximal right ureteral stone, with subsequent JEET. Initially right ureteral stent was placed on 11/01/2023. On follow-up ureteroscopy 01/02/2024 a stone was not visualized and likely passed. The patient states she is doing well. Discussed patient to complete 24 hour urine. Follow-up in 3 months. Plan will be to monitor kidneys and check renal ultrasound in 1 year, will order renal ultrasound at follow-up visit. Review of chart: 11/29/2023--68 year old female who was seen in the hospital in consult for JEET, 10/31/23. Patient with history of tobacco use. CTAP: Obstructing 2 mm proximal right ureteral calculus with associated pelvocaliectasis and perinephric stranding consistent with forniceal rupture. s/p right ureteral stent 1/24/24 She states she is on an abx for recent UTI prescribed by her PCP Plan--cystoscopy, Right ureteroscopy stone extraction possible laser lithotripsy, stent exhange 02/08/2024- Discussed patient to complete 24 hour urine. Follow-up in 3 months. Plan will be to monitor kidneys and check renal ultrasound in 1 year, will order renal ultrasound at follow-up visit. [facility] Medical History GERD (gastroesophageal reflux disease) Multiple sclerosis CVA (cerebral vascular accident) High cholesterol HTN (hypertension) Surgical History History of esophageal surgery Hx of cystoscopy Social History Household Members: Other Household Members Other:: roommate Housing: Apartment Do you presently have visiting nurse or other home services: No Patient Tobacco Use Status: Current everyday Tobacco user Tobacco use type: Cigarette Cigarette Packs Per Day: 1 Cigarettes Per Day: 20 Years Smoked: 50 Second Hand Smoke Exposure: Yes service: No Review of Systems Const All systems reviewed & are unremarkable except as noted in HPI and below Reports no additional complaints Eyes Reports no additional complaints ENT Reports no additional complaints Card Reports no additional complaints Resp Reports no additional complaints GI Reports no additional complaints Reports as per HPI Musc Reports no additional complaints Skin/Breast Reports system reviewed and no additional complaints, except as documented Neuro Reports no additional complaints Psych Reports no additional complaints Endo Reports no additional complaints Yared/Lymph Reports no additional complaints Aller/Immun Reports no additional complaints Physical Exam Const General: cooperative, healthy appearing and no acute distress Orientation/consciousness: patient oriented x3 HEENT Head: Yes normal to inspection, Yes normocephalic and Yes atraumatic Eyes Conjunctivae: conjunctivae normal Chest Chest palpation & inspection: normal inspection of the chest Resp Effort & Inspection: normal respiratory effort Neuro General: patient oriented x3 Psych Appearance: grossly normal Telehealth Telehealth Telehealth Platform: [facility] Location of provider rendering services: practice address Location of patient: address on file Patient Identification confirmed using: Name, : Yes Telehealth method: video Patient verbally consented to treatment: Yes Patient verbally consented to billing insurance company: Yes Patient informed of any privacy concerns related to visit: Yes Results Reviewed Results Reviewed: Date of Service: 10/31/23 EXAMINATION: CT ABDOMEN AND PELVIS WITH CONTRAST CLINICAL INFORMATION: Abdominal pain COMPARISON: None available. TECHNIQUE: Multidetector volumetric images were obtained from the superior aspect of the liver through the pubic symphysis following administration 85 mL of Omnipaque 350 intravenous contrast. Sagittal and coronal reformatted images were obtained on the technologist's workstation. Oral contrast: No This CT examination was performed using dose optimization techniques as appropriate, variously including the following: *Automated exposure control *Adjustment of mA and/or kV according to patient size (this includes techniques or standardized protocols for targeted exams where dose is matched to indication/reason for exam; i.e. extremities or head) *Use of iterative reconstruction technique DLP: 300 mGy-cm FINDINGS: LUNG BASES: The visualized lung bases are unremarkable. LIVER, GALLBLADDER, AND BILIARY TREE: The liver is normal in size, shape, and attenuation. There is a tiny 3 mm cyst in the right lobe of the liver (3:20). No worrisome solid focal hepatic lesion or biliary ductal dilatation is present. The gallbladder is unremarkable with no evidence of radiopaque gallstones, gallbladder wall thickening, or obvious pericholecystic inflammatory changes. PANCREAS: Unremarkable. SPLEEN: Unremarkable. ADRENAL GLANDS: Unremarkable. KIDNEYS AND URETERS: Right: There is an obstructing proximal ureteral calculus on the right measuring about 2 mm in size associated with pelvocaliectasis and perinephric stranding consistent with forniceal rupture. Small amount of fluid is present in the pararenal space. There are benign Bosniak class I right renal cysts which need no additional imaging or follow-up. No suspicious solid right renal masses are seen. No intrarenal calculi are noted. The ureter distal to this stone is unremarkable. Left: Aside from the presence of an upper pole benign Bosniak class I renal cyst which needs no additional imaging or follow-up, no abnormality is seen. BLADDER: Nearly empty but unremarkable. GASTROINTESTINAL TRACT: The small and large bowel are unremarkable. The appendix is unremarkable. ABDOMINAL WALL: No significant hernia is appreciated. LYMPH NODES: Normal. VASCULAR: Calcific atherosclerotic changes are present in the aorta and iliofemoral vessels. There is no evidence of an abdominal aortic aneurysm. PELVIC VISCERA: Unremarkable. OSSEOUS STRUCTURES: Degenerative changes are present at L2-L3 with disc space narrowing. There is a compression fracture involving the superior endplate of L1. IMPRESSION: 1. Obstructing 2 mm proximal right ureteral calculus with associated pelvocaliectasis and perinephric stranding consistent with forniceal rupture. 2. Incidental note made of benign Bosniak class I renal cysts which need no additional imaging or follow-up, L1 compression fracture and degenerative changes L2-L3. Assessment & Plan Assessment & Plan (1) Kidney stone: Code(s): N20.0 - Calculus of kidney Category: Medical (2) Obstructive uropathy: Code(s): N13.9 - Obstructive and reflux uropathy, unspecified Category: Medical (3) Pyelonephritis: Code(s): N12 - Tubulo-interstitial nephritis, not specified as acute or chronic Category: Medical Plan Discussed patient to complete 24 hour urine. Plan will be to monitor kidneys and check renal ultrasound in 1 year Patient Instructions: The patient had an opportunity to ask questions regarding treatment plan. The patient expressed understanding and agreement with the above treatment plan. The patient is aware they should contact our office by phone for worsening of their current condition or the appearance of new symptoms. Compliance is encouraged with any medications and followup testing that is ordered. It is a privilege to be allowed the opportunity to participate in the urologic care of your patient. If you have any questions or concerns regarding treatment for the above conditions please do not hesitate to contact me. The office telephone contact is [phone]. This note is constructed in part using voice recognition software. While every effort has been made to ensure accuracy fire sprinkler fitter errors may have been included. Yours sincerely, Arina Garces MD Coding Level of Care Code Tele New Pt Level 4 (48076) Diagnoses Kidney stone N20.0 Obstructive uropathy N13.9 Pyelonephritis N12
--- OUTSIDE RECORDS SUMMARY | 2024-02-08 08:19 | XMS_ITS | Continuity of Care Document ---
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 Discharge Disposition: A-D/C Home Attending Physician: Naye Ash MD Admitting Physician: Naye Ash MD Referring Physician: See Woods DO Allergies, Adverse Reactions, Alerts Substance Reaction Severity Status NKA Active Medications Amlodipine By Mouth, Daily, 0 Refills, Maintenance, 02/04/20 10:02:00 EDT Start Date: 02/04/20 Status: Ordered atorvastatin 20 mg oral tablet 1 tablet = 20 mg, By Mouth, Daily, 0 Refills, Maintenance, 02/04/20 10:02:00 EDT Start Date: 02/04/20 Status: Ordered lisinopril 2.5 mg oral tablet 2.5 mg, 1, tablet, By Mouth, Daily, Refills 0, Maintenance, 02/04/20 10:01:00 EDT Start Date: 02/04/20 Status: Ordered Vital Signs Most recent to oldest [Reference Range]: 1 Height 169 cm (02/04/20 9:55 AM) Weight 70.9 kg (02/04/20 9:55 AM) Oxygen Saturation [94-100 %] 95 % (02/04/20 9:55 AM) Pulse Rate [55-90 bpm] 86 bpm (02/04/20 9:55 AM) Body Mass Index [18.5-24.99] 24.82 (02/04/20 9:55 AM) Blood Pressure [90-138/55-84 mm Hg] 138/ 73mm Hg (02/04/20 9:55 AM) Temperature [96.8-100.4 DegF] 97.7 DegF (02/04/20 9:55 AM) Mode of Delivery (Oxygen) Room air (02/04/20 9:55 AM) Blood pressure sites Arm, right (02/04/20 9:55 AM) Temperature Route Oral (02/04/20 9:55 AM) Dry Weight 70.9 kg (02/04/20 9:55 AM) Weight Obtained Via Standing scale (02/04/20 9:55 AM) Dry Weight Obtained Via Standing scale (02/04/20 9:55 AM) Social History Social History Type Response Smoking Status Smoker, current stat us unknown entered on: 02/04/20 Sex
--- OUTSIDE RECORDS SUMMARY | 2024-02-08 08:19 | XMS_ITS | Continuity of Care Document ---
Author Organization [facility] Address [address] [place] [address]- Care Team Providers Care Woodworking Belt Sander Name Role Phone See Woods DO Primary Care Physician Encounter [facility] [place](s): 07/31/20 - 08/07/20 [facility] [address] [place] [id number] [facility] Discharge Disposition: A-D/C Home Attending Physician: Naye [...] 10:01:00 EDT Start Date: 02/04/20 Status: Ordered Social History Social History Type Response Smoking Status Smoker, current stat us unknown entered on: 02/04/20 Sex
== END 2024-02-08 09:01 | disposition home or self-care (01) ==
LOC: HO.HUSH 08:17
PROVIDERS: Visit Provider Urology
DX: N20.0 Calculus of kidney (principal); N13.9 Obstructive and reflux uropathy, unspecified; N12 Tubulo-interstitial nephritis, not specified as acute or chronic
CPT/HCPCS: 99213

== ENCOUNTER → 2024-02-08 08:17 | Outpatient (BNVA) | payer OTHER, SELFPAY | PROVIDERS: Visit Provider Urology ==

== ENCOUNTER → 2024-05-09 08:14 | Outpatient (BNVA) | payer OTHER, SELFPAY | PROVIDERS: Visit Provider Urology ==